=== PATIENT | female | born 1930 | race Caucasian/White ===

== ENCOUNTER 2017-03-20 13:47 | Emergency (ER) | payer MEDICARE, BC ==
[~2017-03-20] VITALS: Ht 147.3 cm; Wt 58.0 kg
[~2017-03-20 13:47] MED LIST: AMLO5TAB96 PO; BYST5TAB2 PO; COZA100T PO; GLIP10TA6 OR; GLUCTAB OR; METO5TAB PO; SITA25 PO; SUCR1TAB6 PO
[2017-03-20 14:05] VITALS: BP 109/54; PULSE 66; RESP 16; TEMP 98.6; O2SAT 98
[2017-03-20] MEDS ORDERED: AMLO2.5T PO (15:14)
[2017-03-20] MEDS ORDERED: LOSA100T PO (15:14)
[2017-03-20] MEDS ORDERED: TOLT1TAB16 PO (15:14)
[2017-03-20] MEDS ORDERED: METO5TAB PO (15:14)
[2017-03-20] MEDS ORDERED: HYDR-3799 PO (15:14)
[2017-03-20] MEDS ORDERED: BYST10TA2 PO (15:14)
[2017-03-20] MEDS ORDERED: LANS30CA PO (15:14)
[2017-03-20] MEDS ORDERED: SITA1TAB2 PO (15:14)
[2017-03-20] MEDS ORDERED: GLIP10TA6 PO (15:14)
[2017-03-20] MEDS ORDERED: TORS20TA PO (15:14)
[2017-03-20] MEDS ORDERED: CLON0.1T PO (15:14)
--- NOTE | 2017-03-20 15:15 | PD ---
HPI Chief Complaint: Complaint Time Seen by Provider: 14:59 Travel History International Travel<30 days: No Contact w/Intl Traveler<30days: No Traveled to known affect area: No History of Present Illness HPI over last 2 days c/o urinary urgency, frequency but little actual urination....patient is c/o suprapubic area pain....09/27, spasm/sharp like in presentation...PATIENT HAS BEEN TOLD THAT SHE HAS STAGE [address] KIDNEY DISEASE AND SEES [address] VERDUGO AND HAVE BEEN IN [place] ABOUT [facility] Past Medical History Blood Disorders: No Anxiety: Yes Cardiovascular Problems: Yes (Murmur) High Cholesterol: Yes Cerebrovascular Accident: Yes (1992) Diabetes: Yes (Glipiside) Patient Takes Glucophage: No Diminished Hearing: No Gastrointestinal Disorders: Yes (BARRETTS DZ) GERD: Yes Hypertension: Yes Neurologic: No Psychiatric: Yes Respiratory: No Immunizations Current: Yes (FLU SHOT 2005.) Tetanus Vaccination: Unknown Influenza Vaccination: Yes Menopausal: Yes : 4 Para: 4 Past Surgical History Abdominal Surgery: Yes Body Medical Devices: ARCINIEGA'S DISEASE Cholecystectomy: Yes Hysterectomy: Yes Neurologic Surgery: Yes (ANEURISM TO RT SIDE OF BRAIN-1992.) Tonsillectomy: Yes Other Surgery: Yes Social History Alcohol Use: No Tobacco Use: No Substance Use: No Allergies-Medications (Allergen,Severity, Reaction): Coded Allergies: oxycodone (Unverified Allergy, Severe, SICK TO STOMACH, 03/20/17) propoxyphene (Unverified Allergy, Severe, SICK TO STOMACH, 03/20/17) acetaminophen (Unverified Allergy, Mild, SICK TO STOMACH, 03/20/17) codeine (Unverified Allergy, Mild, SICK TO STOMACH, 03/20/17) Reported Meds & Prescriptions Reported Meds & Active Scripts Active Reported Glipizide 10 Mg Tab 10 Mg PO BIDAC Take 30 minutes before a meal Januvia (Sitagliptin Phosphate) 100 Mg Tab 100 Mg PO DAILY Tolterodine (Tolterodine Tartrate) 2 Mg Tab 2 Mg PO BID Metoclopramide (Metoclopramide HCl) 5 Mg Tab 5 Mg PO DAILY PRN Lansoprazole 30 Mg Capdr 30 Mg PO DAILY Torsemide 20 Mg Tab 20 Mg PO DAILY Bystolic (Nebivolol) 10 Mg Tab 10 Mg PO HS Losartan (Losartan Potassium) 100 Mg Tab 100 Mg PO DAILY Hydralazine HCl 25 Mg Tablet 10 Mg PO HS Clonidine (Clonidine HCl) 0.1 Mg Tab 0.1 Mg PO BID Amlodipine (Amlodipine Besylate) 2.5 Mg Tab 2.5 Mg PO DAILY Review of Systems Except as stated in HPI: all other systems reviewed are Neg General / Constitutional: No: Fever Eyes: No: Visual changes HENT: No: Headaches Cardiovascular: No: Chest Pain or Discomfort Respiratory: No: Shortness of Breath Gastrointestinal: No: Abdominal Pain Genitourinary: Positive: Urgency, Dysuria, Decreased Urinary Output Musculoskeletal: No: Pain Skin: No Rash Neurologic: No: Weakness Psychiatric: No: Depression Endocrine: No: Polydipsia Hematologic/Lymphatic: No: Easy Bruising Physical Exam Narrative GENERAL: SKIN: Warm and dry. HEAD: Atraumatic. Normocephalic. EYES: Pupils equal and round. No scleral icterus. No injection or drainage. ENT: No nasal bleeding or discharge. Mucous membranes pink and moist. NECK: Trachea midline. No JVD. CARDIOVASCULAR: Regular rate and rhythm. RESPIRATORY: No accessory muscle use. Clear to auscultation. Breath sounds equal bilaterally. GASTROINTESTINAL: Abdomen soft, non-tender, nondistended. suprapubic ttpercussion MUSCULOSKELETAL: Extremities without clubbing, cyanosis, or edema. No obvious deformities. NEUROLOGICAL: Awake and alert. No obvious cranial nerve deficits. Motor grossly within normal limits. Five out of 5 muscle strength in the arms and legs. Normal speech. PSYCHIATRIC: Appropriate mood and affect; insight and judgment normal. Data Data Last Documented VS Vital Signs Date Time Temp Pulse Resp B/P (MAP) Pulse Ox O2 Delivery O2 Flow Rate FiO2 03/20/17 16:49 65 18 155/59 (91) 98 Room Air 03/20/17 14:05 98.6 Orders Orders Complete Blood Count With Diff (03/20/17 15:25) Comprehensive Metabolic Panel (03/20/17 15:25) Lipase (03/20/17 15:25) Urinalysis - C+S If Indicated (03/20/17 15:25) Cath For Specimen (03/20/17 15:25) Ct Abd/Pel W/O Iv Contrast (03/20/17 15:25) Iv Access Insert/Monitor (03/20/17 15:25) Ecg Monitoring (03/20/17 15:25) Oximetry (03/20/17 15:25) Urinary Catheter Insert/Apply (03/20/17 15:25) Urine Culture (03/20/17 15:45) Ceftriaxone Inj (Rocephin Inj) (03/20/17 16:30) Labs Laboratory Tests Test 03/20/17 15:45 03/20/17 16:14 White Blood Count 7.9 TH/MM3 Red Blood Count 3.60 MIL/MM3 Hemoglobin 10.2 GM/DL Hematocrit 31.4 % Mean Corpuscular Volume 87.3 FL Mean Corpuscular Hemoglobin 28.4 PG Mean Corpuscular Hemoglobin Concent 32.5 % Red Cell Distribution Width 12.7 % Platelet Count 217 TH/MM3 Mean Platelet Volume 7.3 FL Neutrophils (%) (Auto) 83.4 % Lymphocytes (%) (Auto) 9.6 % Monocytes (%) (Auto) 5.5 % Eosinophils (%) (Auto) 1.1 % Basophils (%) (Auto) 0.4 % Neutrophils # (Auto) 6.6 TH/MM3 Lymphocytes # (Auto) 0.8 TH/MM3 Monocytes # (Auto) 0.4 TH/MM3 Eosinophils # (Auto) 0.1 TH/MM3 Basophils # (Auto) 0.0 TH/MM3 CBC Comment AUTO DIFF Differential Comment AUTO DIFF CONFIRMED Urine Collection Type CLEAN CATCH Urine Color YELLOW Urine Turbidity CLOUDY Urine pH 5.5 Urine Specific [place] 1.017 Urine Protein 300 OR GREATER mg/dL Urine Glucose (UA) NEG mg/dL Urine Ketones TRACE mg/dL Urine Occult Blood LARGE Urine Nitrite NEG Urine Bilirubin NEG Urine Leukocyte Esterase MOD Urine RBC 10-14 /hpf Urine WBC INNUM /hpf Urine WBC Clumps MANY Urine Bacteria MANY /hpf Microscopic Urinalysis Comment CULTURE INDICATED Blood Urea Nitrogen 45 MG/DL Creatinine 2.70 MG/DL Random Glucose 139 MG/DL Total Protein 6.7 GM/DL Albumin 3.2 GM/DL Calcium Level 9.0 MG/DL Alkaline Phosphatase 82 U/L Aspartate Amino Transf (AST/SGOT) 19 U/L Alanine Aminotransferase (ALT/SGPT) 18 U/L Total Bilirubin 0.4 MG/DL Sodium Level 136 MEQ/L Potassium Level 4.5 MEQ/L Chloride Level 104 MEQ/L Carbon Dioxide Level 20.3 MEQ/L Anion Gap 12 MEQ/L Estimat Glomerular Filtration Rate 17 ML/MIN Lipase 81 U/L [facility] Medical Decision Making Medical Screen Exam Complete: Yes Emergency Medical Condition: Yes Medical Record Reviewed: Yes Differential Diagnosis uti v urinary retention v colitis v divertic Narrative Course UA C/W UTI, GIVEN ROCEPHIN IV AND WILL D/C HOME WITH PO MACROBID, ALSO CT NEG FOR COLITIS/DIVERTIC OR URINARY RETENTION Diagnosis Primary Impression: Acute UTI Additional Impression: Chronic kidney disease (CKD) stage G4/A1, severely decreased glomerular filtration rate (GFR) between 15-29 mL/min/1.73 square meter and albuminuria creatinine ratio less than 30 mg/g Patient Instructions: Chronic Kidney Disease (ED), General Instructions, Urinary Tract Infection in Women (ED) Scripts Ondansetron Odt (Zofran Odt) 4 Mg Tab 4 MG SL Q6HR Y for Nausea/Vomiting, #12 TAB 0 Refills Prov: Jaison Rebolledo MD 03/20/17 Nitrofurantoin Monohydrate Macrocrystals (Macrobid) 100 Mg Capsule 100 MG PO BID for Infection for 7 Days, #14 CAP 0 Refills Prov: Jaison Rebolledo MD 03/20/17 Disposition: 01 DISCHARGE HOME Condition: Stable Jaison Rebolledo MD Mar 20, 2017 15:15
[2017-03-20 15:50] LABS: AUTOMATED NEUTROPHIL # 6.6 TH/MM3 (1.8-7.7); BASOPHIL % 0.4 % (0.0-2.0); EOSINOPHIL # 0.1 TH/MM3 (0-0.4); EOSINOPHIL % 1.1 % (0.0-4.0); HEMATOCRIT 31.4 % (35.0-46.0); HEMOGLOBIN 10.2 GM/DL (11.6-15.3); LYMPH % 9.6 % (9.0-44.0); LYMPHOCYTE # 0.8 TH/MM3 (1.0-4.8); MEAN CELL VOLUME 87.3 FL (80.0-100.0); MEAN CORPUSCULAR HEMOGLOBIN 28.4 PG (27.0-34.0); MEAN CORPUSCULAR HGB CONC 32.5 % (32.0-36.0); MEAN PLATELET VOLUME 7.3 FL (7.0-11.0); MONO % 5.5 % (0.0-8.0); MONOCYTE # 0.4 TH/MM3 (0-0.9); NEUT % 83.4 % (16.0-70.0); PLATELET COUNT 217 TH/MM3 (150-450); RED CELL DISTRIBUTION WIDTH 12.7 % (11.6-17.2); WHITE BLOOD COUNT 7.9 TH/MM3 (4.0-11.0)
[2017-03-20 15:53] LABS: BLOOD, URINE LARGE (NEG); GLUCOSE,URINE NEG (NEG); KETONE, URINE TRACE mg/dL (NEG); NITRITE,URINE NEG (NEG); PH, URINE 5.5 (5.0-8.5); URINE LEUKOCYTE ESTERASE MOD (NEG)
[2017-03-20 15:57] LABS: BILIRUBIN, URINE NEG (NEG)
[2017-03-20 15:58] LABS: URINE COLOR YELLOW (YELLW/STRAW)
[2017-03-20 15:59] LABS: BACTERIA, URINE MANY /hpf; WBC, URINE INNUM /hpf (0-5); WHITE BLOOD CELL CLUMPS MANY
[2017-03-20 16:15] VITALS: BP 164/62; PULSE 68; RESP 17; O2SAT 98
--- NOTE | 2017-03-20 16:21 | RADRPT ---
EXAM DATE/TIME: 03/20/2017 15:57 [place] COMPARISON: No previous studies available for comparison. INDICATIONS : Difficulty urinating and lower abdominal pain. ORAL CONTRAST: No oral contrast ingested. RADIATION DOSE: 9.21 CTDIvol (mGy) MEDICAL HISTORY : Hypertension. Cerebrovascular disease. Aneurysm, intracranial.Barretts esophag us. Diabetes. renal failure. SURGICAL HISTORY : Cholecystectomy. Hysterectomy. ENCOUNTER: Initial ACUITY: 1 day PAIN SCALE: 0/10 LOCATION: lower quadrant TECHNIQUE: Volumetric scanning of the abdomen and pelvis was performed. Using automated exposure control and adjustment of the mA and/or kV according to patient size, radiation dose was kept as low as reasonably achievable to obtain optimal diagnostic quality images. DICOM format image data is av ailable electronically for review and comparison. FINDINGS: CT Abdomen: The liver, spleen, pancreas, right kidney adrenals are unremarkable. There are cysts in t he left kidney the largest measures 2.3 cm in size. There is no evidence for any appreciable patholog ical adenopathy, free fluid, or bowel obstruction. There are tiny nodules in both lung bases the lar gest one measures 4-5 mm on the right. The patient's older studies from 2010 our archive and not avai lable for comparison at this time. Chronic vascular calcifications are present involving the aorta, i liac arteries without any significant stenosis or aneurysmal dilatations for technique. CT pelvis: There is no evidence for mass, abscess formation, or any significant adenopathy within the pelvis. There are degenerative changes and possible bulging discs in the lower lumbosacral spine not adequately characterized. There is also lumbar scoliosis convexity to the right. CONCLUSION: Multiple lung nodules in the lung bases could be inflammatory, however metastatic dis ease is difficult to exclude. When and if the patient's prior CT examinations are available, direct c omparison and addendum dictation will be made. Heriberto Bettencourt MD on March 20, 2017 at 16:13 Board Certified Radiologist. This report was verified electronically.
[2017-03-20] MEDS ORDERED: cefTRIAXone INJ 1,000 MG in SODIUM CHLORIDE 0.9% INJ 100 ML IV ONE (16:30)
[2017-03-20 16:31] LABS: CHLORIDE 104 MEQ/L (98-107); SODIUM (NA) 136 MEQ/L (136-145)
[2017-03-20 16:35] LABS: ALBUMIN 3.2 GM/DL (3.4-5.0); BICARBONATE 20.3 MEQ/L (21.0-32.0); BLOOD UREA NITROGEN 45 MG/DL (7-18); GLUCOSE,RANDOM 139 MG/DL (74-106); LIPASE 81 U/L (73-393)
[2017-03-20 16:38] LABS: ALT (GPT) 18 U/L (10-53); AST (GOT) 19 U/L (15-37); GLOMERULAR FILTRATION RATE 17 ML/MIN (>89)
[2017-03-20 16:40] LABS: TOTAL BILIRUBIN ADULT 0.4 MG/DL (0.2-1.0); TOTAL PROTEIN 6.7 GM/DL (6.4-8.2)
[2017-03-20 16:41] LABS: ALKALINE PHOSPHATASE 82 U/L (45-117)
[2017-03-20 16:49] VITALS: BP 155/59; PULSE 65; RESP 18; O2SAT 98
[2017-03-20] MEDS ORDERED: ZOFR4TAB3 SL (16:55)
[2017-03-20] MEDS ORDERED: MACR100C2 PO (16:55)
== END 2017-03-20 17:43 | disposition home or self-care (01) ==
LOC: PHED 13:47
DX: N39.0 Urinary tract infection, site not specified (principal); I12.9 Hypertensive chronic kidney disease with stage 1 through stage 4 chronic kidney disease, or unspecified chronic kidney disease; N18.4 Chronic kidney disease, stage 4 (severe); E78.00 Pure hypercholesterolemia, unspecified; E11.9 Type 2 diabetes mellitus without complications; K21.9 Gastro-esophageal reflux disease without esophagitis; K22.70 Barrett's esophagus without dysplasia; Z86.73 Personal history of transient ischemic attack (TIA), and cerebral infarction without residual deficits; Z79.84 Long term (current) use of oral hypoglycemic drugs; B96.20 Unspecified Escherichia coli [E. coli] as the cause of diseases classified elsewhere
CPT/HCPCS: 74176; 80053; 81001; 83690; 85025; 87077; 87086; 87186; 96365; 99285; J0696; P9612

== ENCOUNTER 2017-11-16 12:52 | Inpatient (IN) ==
[2017-11-16] MEDS ORDERED: Heparin/NS PF Inj 1,500 ML ONE (13:12)
[2017-11-16 13:16] LABS: Baso % (Auto) 0.2 % (0.0-2.0); Eos # (Auto) 0.2 th/mm3 (0.0-0.4); Eos % (Auto) 2.4 % (0.0-4.0); Hemoglobin 11.5 gm/dL (11.6-15.3); Lymph % (Auto) 10.7 % (9.0-44.0); Mean Corpuscular HGB Conc 34.9 % (32.0-36.0); Mean Corpuscular Hemoglobin 30.4 pg (27.0-34.0); Mean Platelet Volume 6.8 fL (7.0-11.0); Mono # (Auto) 0.7 th/mm3 (0.0-0.9); Mono % (Auto) 6.7 % (0.0-8.0); Neut # (Auto) 7.8 th/mm3 (1.8-7.7); Platelet Count 233 th/mm3 (150-450); Red Cell Distribution Width 12.7 % (11.6-17.2); White Blood Count 9.7 th/mm3 (4.0-11.0)
--- NOTE | 2017-11-16 13:16 | ED ---
HPI General Chief complaint: Chest Pain Stated complaint: chest pain dizzy x1wk Source: patient, family, RN notes reviewed and old records reviewed Mode of arrival: ambulatory History of Present Illness HPI narrative: 87yF presenting with chest pain. The patient's daughter states that the patient has been complaining of substernal chest "pressure-like" pain which was initially intermittent but became constant earlier this morning, moderate intensity, associated with dyspnea and generalized weakness. The patient has a history of Tien's esophagus and GERD and was initially attributing her symptoms to this. She denies diaphoresis, dizziness, or cough. History of stage III or IV kidney disease not on dialysis, (+) history of HTN. No known history of CAD/ ME in the past. Related Data Allergies Allergy/AdvReac Type Severity Reaction Status Date / Time No Known Allergies Allergy Unverified 11/16/17 13:36 Review of Systems ROS: all other systems reviewed are negative PMFSH History History Provided By: Patient Medical History Medical History Clarke esophagus (Acute) CVA (cerebral vascular accident) (Acute) Chronic kidney disease (Acute) Diabetes (Acute) GERD (gastroesophageal reflux disease) (Acute) Gastroparesis (Acute) H/O: hysterectomy (Acute) Heart murmur (Acute) Hypertension (Acute) Surgical History Surgical History H/O brain surgery (Acute) History of cholecystectomy (Acute) History of tonsillectomy (Acute) Social History Social History Substance History: No History of Abuse Second Hand Smoke Exposure: No Smoking Status: Never smoker How Often Do You Have a Drink Containing Alcohol: Never Recent Travel [facility] within the Last 8 Weeks: No Recent Out of Country Travel within the Last 8 Weeks: No Exam Const General: ill appearing [facility] Head: normocephalic and atraumatic Face and sinus: normal facial exam Eyes General: appearance normal, both eyes and all related structures Pupils: PERRL Chest Chest: normal inspection of the chest Resp Effort & Inspection: normal respiratory effort Auscultation: no rhonchi and no wheezes Cardio Rate: regular rate Rhythm: regular rhythm Heart Sounds: murmur GI Inspection: non-distended Palpation: soft and nontender Skin General: no rashes or lesions noted Other: No diaphoresis Neuro General: alert, awake, oriented x3 and no focal motor deficits Extrem Other: No lower extremity edema Psych Affect: normal affect Course Consultations Consultation #1: Case discussed with Dr. Henson for STEMI alert Time: 13:05 Initial Documented Vital Signs Temperature 97.9 F 11/16/17 13:00 Pulse Rate 58 L 11/16/17 13:00 Respiratory Rate 16 11/16/17 13:00 Blood Pressure 175/68 H 11/16/17 13:00 Pulse Oximetry 99 11/16/17 13:00 Last Documented Vital Signs Temperature 97.9 F 11/16/17 13:02 Pulse Rate 45 L 11/16/17 13:15 Respiratory Rate 16 11/16/17 13:15 Blood Pressure 177/83 H 11/16/17 13:15 Pulse Oximetry 98 11/16/17 13:15 Quality Measure Queries AMI Clinical Trial Participant: No Contraindication for No Fibrinolytic Therapy: Drug treatment not indicated ( transfer for PCI) ECG initial impression date: 11/16/17 ECG initial impression time: 12:55 Medical Decision Making MDM Narrative Medical decision making narrative: Assessment: 87yF presenting with STEMI Plan: EKG and monitor CXR Labs Aspirin (patient already took 81 mg prior to arrival) Case discussed with Dr. Henson (cardiology), patient requires stat transfer to [facility] for PCI I spoke with the patient's daughter at length regarding this plan, and explained that she will need contrast during PCI, which may further damage her kidneys and may cause her to need hemodialysis. Her daughter understands and agrees with this plan, and would like to proceed with PCI. Medical Screen Exam Complete: Yes Emergency Medical Condition: Yes Differential Diagnosis Differential Diagnosis: Differential diagnosis includes, but is not limited to: ACS, pericarditis, myocarditis Lab Data Result diagrams: 11/16/17 13:05 11/16/17 13:05 Lab Results 11/16/17 11/16/17 Range/Units 13:05 13:05 CBC w Diff Auto diff final WBC 9.7 (4.0-11.0) th/mm3 RBC 3.80 L (4.00-5.30) mil/mm3 Hgb 11.5 L (11.6-15.3) gm/dL Hct 33.0 L (35.0-46.0) % MCV 87.0 (80.0-100.0) fL MCH 30.4 (27.0-34.0) pg MCHC 34.9 (32.0-36.0) % RDW 12.7 (11.6-17.2) % Plt Count 233 (150-450) th/mm3 MPV 6.8 L (7.0-11.0) fL Neut % (Auto) 80.0 H (16.0-70.0) % Lymph % (Auto) 10.7 (9.0-44.0) % [place] % (Auto) 6.7 (0.0-8.0) % Eos % (Auto) 2.4 (0.0-4.0) % Baso % (Auto) 0.2 (0.0-2.0) % Neut # (Auto) 7.8 H (1.8-7.7) th/mm3 Lymph # (Auto) 1.0 (1.0-4.8) th/mm3 [place] # (Auto) 0.7 (0.0-0.9) th/mm3 Eos # (Auto) 0.2 (0.0-0.4) th/mm3 Baso # (Auto) 0.0 (0.0-0.2) th/mm3 WBC Differential . Differential Comment . Sodium 133 L (136-145) meq/L Potassium 4.9 (3.5-5.1) meq/L Chloride 99 (98-107) meq/L Carbon Dioxide 23.7 (21.0-32.0) meq/L Anion Gap 10 (5-15) meq/L BUN 31 H (7-18) mg/dL Creatinine 2.40 H (0.50-1.00) mg/dL Estimated GFR 19 L (>89) mL/min Random Glucose 156 H (74-106) mg/dL Calcium 9.3 (8.5-10.1) mg/dL Magnesium 2.2 (1.5-2.5) mg/dL Total Bilirubin 0.4 (0.2-1.0) mg/dL AST 15 (15-37) U/L ALT 19 (10-53) U/L Total Protein 6.9 (6.4-8.2) g/dL Albumin 3.5 (3.4-5.0) g/dL Imaging Data Radiologist's impression: Chest X-Ray 11/16/17 13:02 CONCLUSION: Stable chest. No acute disease ECG Data Attestation: I personally reviewed and interpreted this ECG as follows: Interpretation: Rate: 60 BPM Rhythm: Sinus [place]: Normal Intervals: QTc 410 ms Q waves: III, V2 T waves: Inversions in I, aVL, V2 ST segments: 2 mm elevations in III, aVF, aVR and depressions in I, aVL Impression: STEMI, ST/ T wave changes are new when compared to EKG from 2011 Discharge Plan Discharge Disposition Patient Disposition: 02 Transfer To [facility] Discharge Condition Condition: Stable Discharge Details Diagnosis: ST elevation myocardial infarction (STEMI) Physicians Team ED Provider: Nathaly Soares Primary Care Provider: UNKNOWN, Discharge Instructions Patient Printed Instructions: Chest Pain (ED) Status ED Status: With Doctor
--- NOTE | 2017-11-16 13:23 | XR ---
EXAM DATE: 11/16/2017 1:16 PM EDT AGE/SEX: 87 years / Female INDICATIONS: STEMI ALERT. CLINICAL DATA: This is the patient's initial encounter. Patient reports that signs and symptoms have been present for 1 day and indicates a pain score of 6/10. MEDICAL/SURGICAL HISTORY: . Hypertension. Cerebrovascular disease. Aneurysm, intracranial.[place] tts esophagus. Diabetes. renal failure. Cholecystectomy. Hysterectomy. COMPARISON: POI, XR CHEST PA AND LAT, 12/10/2016. . FINDINGS: Lungs are grossly clear. No significant effusion suspected. Cardiac contours are stable with mild car diac enlargement. Pulmonary vascularity is within normal limits. CONCLUSION: Stable chest. No acute disease Electronically signed by: Pete Albert MD 11/16/2017 1:21 PM EDT
[2017-11-16 13:24] LABS: Chloride 99 meq/L (98-107); Potassium 4.9 meq/L (3.5-5.1); Sodium 133 meq/L (136-145)
[2017-11-16 13:27] LABS: Calcium 9.3 mg/dL (8.5-10.1)
[2017-11-16 13:28] LABS: Albumin 3.5 g/dL (3.4-5.0); Anion Gap 10 meq/L (5-15); Blood Urea Nitrogen 31 mg/dL (7-18); Carbon Dioxide 23.7 meq/L (21.0-32.0); Glucose,Random 156 mg/dL (74-106); Magnesium 2.2 mg/dL (1.5-2.5)
[2017-11-16 13:31] LABS: Alanine Aminotransferase 19 U/L (10-53); Aspartate Aminotransferase 15 U/L (15-37); Glomerular Filtration Rate 19 mL/min (>89)
[2017-11-16 13:33] LABS: Total Protein 6.9 g/dL (6.4-8.2)
[2017-11-16 13:34] LABS: Alkaline Phosphatase 69 U/L (45-117)
[2017-11-16 13:41] LABS: Creatine Kinase 42 U/L (26-192)
[2017-11-16] MEDS ORDERED: Heparin/NS PF Inj 500 ML ONE (13:45)
[2017-11-16] MEDS ORDERED: Nitroglycerin Drip Premix 50 MG/250 ML BOTTLE ONE (14:00)
[2017-11-16] MEDS ORDERED: Nitroglycerin SL 400 MCG/ACT 4.9 GM Spray Bottle SL ONE (14:11)
[2017-11-16] MEDS ORDERED: Acetaminophen 325 MG Tablet PO PRN (14:49)
[2017-11-16] MEDS ORDERED: Misc Info for Pharmacy OTHER STA (14:49)
--- NOTE | 2017-11-16 14:59 | CATHPROC ---
[facility] HIS Report Study Information Study Number Admission Scheduled Start Study Start [id number] Nov 16 2017 12:52PM 11/16/2017 Nov 16 2017 1:38PM [place] Service Cardiac Catheterization Admit Source Facility Department Transfer in from another acute care facility [facility] - Color Control Supervisor Physician and Clinical Staff Initial MD Henson, Jean Nonprofit Director Jovan RN, Lenka Herrera,RT(R) (BS) Scrub Emilie Apodaca ,RT(R) Procedures Performed Procedure Location (Site) Vessel Name Coronary Angiograms LCA Left Coronary Coronary Angiograms RCA Right Coronary Drug Eluting Inflatio RCA Prox Right Coronary IVUS Fem Art (right) Femoral Art L Heart Cath PTCA RCA Prox Right Coronary Wire insertion Fem Art (right) Femoral Art Equipment Time Belt Maker Helper Description Size Mfg Part Number Used/Scraped [id number] 14:12 [employer]ENZU[employer] WIRE, ASAHI PROWATER 180CM 180CM Used *[id number] TRANSDUCER, TRUWAVE [id number] 13:49 MORTENSEN FRIEDMAN * Used W/STOCKCOCK *[id number] [id number] *[id number] [id number] *[id number] *[id number] *[id number] PIGTAIL ANG. 145 INFINITI [id number] CATHETER *[id number] 14:31 DAIG/ST. SARAH MEDICAL ANGIOSEAL, FR6 VIP FR 6 Used *[id number] 13:49 TeamDynamix BLANKET,WARM AIR CCL * Used *[id number] 13:49 TeamDynamix PACK, CCL CUSTOM * Used *[id number] 13:49 Nimbus Data PACER PEN, SKIN DUAL W/ RULER * Used *[id number] BALLOON, 3.5 X 8MM NC [id number] 14:26 MEDTRONIC 8MM Used EUPHORA *[id number] 14:21 MEDTRONIC STENT, 3.5 12MM SHARYN 3.5 12MM Used *[id number] 14:23 Sidense MEDICAL 30 DIOGENES INDEFLATOR Used *[id number] 13:49 Sidense MEDICAL SHEATH, FR6.5 PRELUDE 11CM FR 6.5 [id number] Used *[id number] 13:49 Roundarch WIRE, 3MMJ .035 180CM 180CM Used *[id number] 13:49 NAMIC MANIFOLD, 4 PORT * Used *[id number] 13:49 NYCOMED OMNIPAQUE, 350 MG, 150ML 150ML [id number] Used CATHETER, [employer] [place] [place] [id number] 14:12 VOLCANO Used IMAGING *[id number] Equipment Model, Serial, Lot Number and Expiration Data Description Model Number Serial Number Lot Number Expiration Date BALLOON, 3.5 X 8MM NC EUPHORA [id number] 05-11-2019 CATHETER, [employer] [place] [id number] 07-19-2019 IMAGING STENT, 3.5 12MM SHARYN [id number] 01-21-2019 History: Current Medications Medication Dosage/Unit Route Frequency Last Date/Time Taken COZAAR Beta Triston NORVASC CLONIDINE HYDRALAZINE History: Allergies Allergy Reaction codeine SICK TO STOMACH oxycodone SICK TO STOMACH propoxyphene SICK TO STOMACH acetaminophen SICK TO STOMACH No Known Allergies History: Risk Factors Family History of Hypertension Dyslipidemia Previous [place] Previous Heart Failure Premature CAD Yes No No No No Prior Valve Prior PCI Prior CABG Surgery No No No Cerebrovascular Peripheral Artery Chronic Lung On Dialysis Diabetes Diabetes Therapy Disease Disease Disease No Yes No No Yes Oral History: Symptoms/Diagnosis Selection Items Chest pain History: Stress Tests Stress or Imaging Studies Performed No History: Other Current Smoker No Labs Hgb (g/dl) Hct (%) WBC (l/cumm) Platelets (thousands) 11.60-17.00 35.00-51.00 4.00-11.00 150.00-450.00 11.5 33 9.7 233 Creatinine (mg/dl) 0.50-1.30 2.4 Troponin I (ng/ml) CPK-MB (ng/ML) 0.02-0.05 0.50-3.60 0.02 Not Drawn Medication Medication Total Dose (Bolus/Oral) Medication Total Dosage/Unit 1% XYLOCAINE 20 mL ANGIOMAX BOLUS 8.3 mL BRILINTA 180 mg NITROGLYCERIN S/L 0.4 mg VERSED 1 mg Medications (Bolus/Oral) Medication Time Given Dosage/Unit Administered By Reason VERSED 11/16/2017 1:48:49 PM 1 mg Jose Aldana RN 1 mg VERSED given in lab by Jose Aldana RN via Peripheral IV. 1% XYLOCAINE 11/16/2017 1:53:41 PM 20 mL Jean Henson 20 mL 1% XYLOCAINE given in lab by Jean Henson in Right Groin via Subcutaneous. ANGIOMAX BOLUS 11/16/2017 2:08:42 PM 8.3 mL Jose Aldana RN 8.3 mL ANGIOMAX BOLUS given in lab by Jose Aldana RN in Right Antecubital via Peripheral IV. NITROGLYCERIN S/L 11/16/2017 2:11:31 PM 0.4 mg Jose Aldana RN 0.4 mg NITROGLYCERIN S/L given in lab by Jose Aldana RN via Sublingual. BRILINTA 11/16/2017 2:36:27 PM 180 mg Jose Aldana RN 180 mg BRILINTA given by Jose Aldana RN via Oral. Medication (Drip) Medication Time Given Dosage/Unit Concentration/Unit Diluent (ml) Solutio n ANGIOMAX DRIP 11/16/2017 2:10:57 PM 1 mg/kg/hr 250 mg 50 NaCl .9 1 mg/kg/hr ANGIOMAX DRIP given in lab by Jose Aldana RN in Right Antecubital via Peripheral IV. Pump /Drip Flow = 11 ml/hr using NaCl .9 with a concentration of 250 mg in 50 ml. IV Solutions 11/16/2017 1:41:01 PM 0 mL (IV) 500 NaCl .9 IV Solutions given in lab by Jose Aldana RN in Right Antecubital via Peripheral IV. Pump/Drip Flow = 30 ml/hr using NaCl .9. NITROGLYCERIN DRIP 11/16/2017 2:02:56 PM 10 mcg/min 50 mg 250 D5W 10 mcg/min NITROGLYCERIN DRIP given in lab by Jean Henson in Right Antecubital via Peripheral IV. P ump/Drip Flow = 3 ml/hr using D5W with a concentration of 50 mg in 250 ml. NITROGLYCERIN DRIP 11/16/2017 2:29:40 PM 20 mcg/min 50 mg 250 D5W 20 mcg/min NITROGLYCERIN DRIP given in lab by Jean Henson in Right Antecubital via Peripheral IV. P ump/Drip Flow = 6 ml/hr using D5W with a concentration of 50 mg in 250 ml. Initial Case Assessment Cardiovascular HR Rhythm NIBP 56 reg 225/80 Edema Present Skin color Skin None Normal Warm Dry Circulatory - Right Pulses Dorsalis Pedis Femoral 1 1 Scale (0,1,2,3,4,d) Circulatory - Left Pulses Dorsalis Pedis Femoral 1 1 Scale (0,1,2,3,4,d) Circulatory - Lower Extremities Color Lower Right Color Lower Left Normal Normal Neurological State Oriented to time-place- Alert Moves all extremities person Respiration - General Respiration Rate SpO2 (%) (B/min) 15 98 Chronological Log Time Study Chronological Log 13:40:37 Patient arrived via Bed. 13:40:37 Patient Name, D.O.B, / Armband Verified By R.N. 13:40:43 Consent signed by the physician and the patient and verified by the Color Control Supervisor staff. 13:40:44 Pre-op and post- op instructions given; patient acknowledges understanding of instructions. 13:40:46 Presedation assessment performed by Color Control Supervisor RN. 13:40:55 Patient Warmer Placed on the Table. 13:40:58 Disposable Defibrillator Pads Placed On Patient. 13:41:00 A # 20 IV was noted in the Antecubital (right). Grade = ~GRADE~ 13:41:01 A # 20 IV was noted in the Antecubital (left). Grade = 0 IV Solutions given in lab by Jovan ZURITA, Jose in Right Antecubital via Peripheral IV. Pump/Drip Flow = 30 ml/hr using 13:41:01 NaCl .9. 13:41:04 History and physical on the chart or being dictated. Assessment: Initial Case, HR=56 BPM, Rhythm=reg, MJZH=667/80 mmhg, Edema=None, Color=Normal, Sk in = Warm, Dry Right Pulses: Chris Ped=1, Femoral=1 Left Pulses: Chris Ped=1, Femoral=1 13:41:05 Lower Right Extremities: Color=Normal Lower Left Extremities: Color=Normal Neurological: State=Alert, Ox3, PINA Respiration: Resp=15 B/min, SpO2=98 % 13:42:09 Immediate Presedation assesment performed by physician. Vitals capture started with the following parameters, Patient=Adult, Interval=5 min, Initial Pr lgdtgn=246 mmHg, 13:44:11 Deflation Rate=5 mmHg, Cuff placed on Left Arm 13:45:04 Bilateral groins prepped with 2% chlorhexidine, and draped after a 3 minute waiting time. 13:45:37 HR=64 bpm, NLHP=144/80 mmhg, SpO2=99.0 %, Resp=16 B/min, Pain=5, Carlito=10, Joy=2 13:48:49 1 mg VERSED given in lab by Jose Aldana RN via Peripheral IV. 13:50:11 HR=48 bpm, TLMF=426/74 mmhg, NgK8=872.0 %, Resp=22 B/min, Pain=5, Carlito=10, Joy=2 13:50:12 Pressure channel 1 zeroed. Time Out. Correct patient, correct procedure, correct physician, labs, allergies, and equipment verified with lab support service tech 13:50:27 team present. Fire risk assesment completed (see hard stop sheet for coding). Time Out Conc urred by and individual staff in procedure. 13:50:50 Case Start 13:53:41 20 mL 1% XYLOCAINE given in lab by Jean Henson in Right Groin via Subcutaneous. 13:55:02 HR=59 bpm, PMIN=228/88 mmhg, SpO2=99.0 %, Resp=25 B/min, Pain=5, Carlito=10, Joy=2 13:57:22 Access site was Right Femoral Artery. 13:57:28 A SHEATH, FR6.5 PRELUDE 11CM FR 6.5 was advanced into the Fem Art (right) using the Percuta neous technique. A PIGTAIL ANG. 145 INFINITI CATHETER FR 6 was advanced over a wire. OMNIPAQUE, 350 MG, 150ML 15 0ML was 13:58:33 used for injections. Recorded Pressure: LV, HR=56, Condition=Condition 1 13:59:17 (Left Ventricle) LV 225/1/12 Recorded Pressure: LV, Ao, HR=57, Condition=Condition 1 13:59:29 (Left Ventricle) LV 224/3/12, (Aorta) Ao 216/61/117 14:00:07 HR=56 bpm, XZJI=524/75 mmhg, SpO2=98.0 %, Resp=17 B/min, Pain=5, Carlito=10, Joy=2 14:00:11 Catheter was removed A 3DRC INFINITI CATHETER FR 5 was advanced over a wire. OMNIPAQUE, 350 MG, 150ML 150ML was used for 14:00:13 injections. 14:00:46 Reference ECG taken Recorded Pressure: Ao, HR=58, Condition=Condition 1 14:01:32 (Aorta) Ao 191/59/107 14:01:58 The RCA was injected and visualized at various angles. OMNIPAQUE, 350 MG, 150ML 150ML used . A JL 4.0 INFINITI CATHETER FR 6 was advanced over a wire. OMNIPAQUE, 350 MG, 150ML 150ML was us ed for 14:02:39 injections. 10 mcg/min NITROGLYCERIN DRIP given in lab by Jean Henson in Right Antecubital via Peripheral IV. Pump/Drip Flow 14:02:56 = 3 ml/hr using D5W with a concentration of 50 mg in 250 ml. 14:05:02 HR=55 bpm, BVBX=224/65 mmhg, SpO2=97.0 %, Resp=12 B/min, Pain=5, Carlito=10, Joy=2 14:05:10 The LCA was injected and visualized at various angles. OMNIPAQUE, 350 MG, 150ML 150ML used . 14:05:17 Catheter was removed A JR 4.0 GUIDE CATHETER FR 6 was advanced over a wire. OMNIPAQUE, 350 MG, 150ML 150ML was used for 14:07:55 injections. 14:08:42 8.3 mL ANGIOMAX BOLUS given in lab by Jose Aldana RN in Right Antecubital via Peripheral I V. 14:09:59 HR=56 bpm, CBUP=784/71 mmhg, SpO2=98.0 %, Resp=18 B/min, Pain=5, Carlito=10, Joy=2 1 mg/kg/hr ANGIOMAX DRIP given in lab by Jose Aldana RN in Right Antecubital via Peripheral IV . Pump/Drip Flow = 11 14:10:57 ml/hr using NaCl .9 with a concentration of 250 mg in 50 ml. A JR 4.0 GUIDE CATHETER FR 5 was advanced over a wire. OMNIPAQUE, 350 MG, 150ML 150ML was used for 14:11:02 injections. 14:11:31 0.4 mg NITROGLYCERIN S/L given in lab by Jose Aldana RN via Sublingual. 14:13:26 A WIRE, Altimet PROWATER 180CM 180CM was inserted via Fem Art (right). 14:14:58 HR=53 bpm, HUBB=586/72 mmhg, SpO2=98.0 %, Resp=25 B/min, Pain=5, Carlito=10, Joy=2 14:16:56 An CATHETER, [employer] [place] IMAGING was advanced through the lesion. Images saved on to IVUS hard drive 14:18:28 IVUS in progress using CATHETER, [employer] [place] IMAGING Mean Luminal Area measured 3.25 14:19:59 HR=55 bpm, WAMW=782/73 mmhg, SpO2=98.0 %, Resp=15 B/min, Pain=5, Carlito=10, Joy=2 14:20:10 IVUS catheter removed A STENT, 3.5 12MM SHARYN 3.5 12MM was advanced through a JR 4.0 GUIDE CATHETER FR 5 over a WIRE, ASAHI 14:21:35 PROWATER 180CM 180CM. A STENT, 3.5 12MM SHARYN 3.5 12MM was deployed using a 30 DIOGENES INDEFLATOR at 12 atmospheres for 33 seconds in 14:22:54 the RCA Prox. 14:23:42 Delivery device removed 14:25:00 HR=56 bpm, SCWN=043/74 mmhg, SpO2=98.0 %, Resp=18 B/min, Pain=5, Carlito=10, Joy=2 A BALLOON, 3.5 X 8MM NC EUPHORA 8MM was inserted over WIRE, ASAHI PROWATER 180CM 180CM via the Fem Art 14:26:04 (right). A BALLOON, 3.5 X 8MM NC EUPHORA 8MM over a WIRE, ASAHI PROWATER 180CM 180CM in the RCA Prox was 14:27:38 inflated using a 30 DIOGENES INDEFLATOR at 20 diogenes for 20 sec. 14:28:28 Balloon Removed 20 mcg/min NITROGLYCERIN DRIP given in lab by Jean Henson in Right Antecubital via Peripheral IV. Pump/Drip Flow 14:29:40 = 6 ml/hr using D5W with a concentration of 50 mg in 250 ml. 14:30:16 Catheter was removed 14:30:19 Wire removed 14:30:38 HR=54 bpm, KQIP=248/74 mmhg, SpO2=98.0 %, Resp=20 B/min, Pain=5, Carlito=10, Joy=2 14:30:46 An injection in the Fem Art (right) was made through the SHEATH, FR6.5 PRELUDE 11CM FR 6.5. 14:31:10 ANGIOSEAL, FR6 VIP FR 6 placement in the Fem Art (right) 14:33:17 Case End (Physician broke scrub) 14:33:39 Catheter(s) removed without difficulty 14:35:02 HR=58 bpm, BZEX=403/79 mmhg, SpO2=99.0 %, Resp=14 B/min, Pain=5, Carlito=10, Joy=2 14:35:02 Sterile dressing applied to site 14:35:05 No case complications noted. 14:35:09 Bedside Report will be given. 14:35:09 Implantable Device card placed in patient's chart. 14:35:14 A Left Heart Cath was performed. 14:36:27 180 mg BRILINTA given by Jose Aldana RN via Oral. 14:40:47 HR=55 bpm, HGEZ=943/84 mmhg, SpO2=99.0 %, Resp=20 B/min, Pain=5, Carlito=10, Joy=2 14:45:07 HR=55 bpm, LYJX=824/89 mmhg, SpO2=99.0 %, Resp=18 B/min, Pain=5, Carlito=10, Joy=2 14:49:35 Vitals capture stopped. 14:51:13 Patient moved to [facility] [place] End Study - Contrast Media Used In Study Contrast Total Opened (mL) Total Used (mL) Total Wasted (mL) Omnipaque 50 50 0 End Study - Maximum Contrast Load Max Contrast Load (mL) 114.6 End Study - Radiation Exposure Fluoro Time (minutes) 8.7 End Study - Sheaths Sheaths Pulled By Sheath Hold Time (min) Jean Henson End Study - Patient Disposition Complications Transferred To Interventional Outcome No Telemetry Bed successful
[2017-11-16] MEDS: Nitroglycerin Drip Premix 50 MG/250 ML BOTTLE IV.CONT PRN ×2 (15:00→15:25)
--- NOTE | 2017-11-16 15:17 | MH ---
cc: Jean Henson MD DATE OF ADMISSION: 11/16/2017 ADMISSION DIAGNOSES: 1. Acute inferior ST-elevation myocardial infarction. 2. Severe hypertension. 3. Chronic stage IV kidney disease. CHIEF COMPLAINT: Chest pain. HISTORY OF PRESENT ILLNESS: This is an 87-year-old woman who has been having intermittent chest pain for a couple of weeks, but suddenly it has become constant today. It is a pressure-like discomfort in the center of the left upper chest, making her very uncomfortable. She was seen in [place] ER and had ST elevation in lead III and aVF and sent up here as a STEMI alert. She is having ongoing pain at the start of the catheterization. PAST MEDICAL HISTORY: Includes severe hypertension, on multiple medications, chronic stage IV kidney disease, previous CVA, Clarke esophagus, diabetes, gastroesophageal reflux disease, gastroparesis, previous hysterectomy, history of murmur. PAST SURGICAL HISTORY: Includes brain surgery, cholecystectomy, tonsillectomy. SOCIAL HISTORY: No history of any substance abuse. Nonsmoker, nondrinker. REVIEW OF SYSTEMS: Denies any bleeding. PHYSICAL EXAMINATION: GENERAL: Alert, elderly female. She is showing some mild signs of dementia, repeating herself, but knew she was in the hospital and was able to provide history of her chest pain. HEENT: Unremarkable. NECK: Negative for JVD or bruits. CHEST: Clear anteriorly. CARDIAC: S1, S2. Regular rate and rhythm, 1/6 systolic murmur. ABDOMEN: Soft, nontender. EXTREMITIES: No clubbing, cyanosis, or edema. Pulses intact. EKG shows sinus rhythm. There is barely 1 mm depression in III and aVF, which is consistent with the diagnosis of STEMI. LABORATORY DATA: Her hematocrit is 33.0, creatinine is 2.4 with a BUN of 31. Her initial troponin is negative. Chest x-ray shows no acute disease. At the time of this dictation, her catheterization has been completed and a drug-eluting stent has been placed on her proximal right coronary artery with 50 mL or less of contrast administration. PLAN: Continue aspirin and Brilinta. We will consult Dr. Contreras to follow her from nephrology. She will need at least 2 days in the hospital. Further therapy to be determined. Jean Henson MD VEElizabeth/ts , 02:49 PM , 02:57 PM
[2017-11-16] MEDS: Sod Chloride 0.9% Inj 1,000 ML IV.CONT SCH (16:11)
--- NOTE | 2017-11-16 17:00 | P.CON ---
History of Present Illness Reason for Consult: Medical management Primary Care Provider: UNKNOWN Family Provider: Lorne Shi DO Chief Complaint: Chest pain History of Present Illness: 87-year-old female for past medical history of diabetes type 2, hypertension, chronic kidney disease stage IV presented to the ED today for evaluation of ongoing substernal chest pain times several weeks duration however worse today on presentations shortness of breath and elevated BP. A STEMI was called and patient was taken to cardiac catheterization lab for PCI with stent placement. Patient was seen in her room, she is currently on nitroglycerin for elevated BP. During my exam, she denies any chest pain or shortness of breath. Review of Systems All other systems reviewed negative except as stated in HPI [facility] - History History Provided By: Patient - Medical History Medical History: Medical History (Last Updated 11/16/17 @ 13:20 by Farhana Healy RN) Diabetes GERD (gastroesophageal reflux disease) Gastroparesis Clarke esophagus CVA (cerebral vascular accident) Chronic kidney disease H/O: hysterectomy Heart murmur Hypertension - Surgical History Surgical History: Surgical History (Last Updated 11/16/17 @ 13:20 by Farhana Healy RN) H/O brain surgery History of cholecystectomy History of tonsillectomy - Family History Family History: Family History (Last Updated 11/16/17 @ 16:54 by Arthur Jaime MD) Other Heart disease - Tobacco History Second Hand Smoke Exposure: No Smoking Status: Never smoker - Alcohol History How Often Do You Have a Drink Containing Alcohol: Never - Substance Use History Substance History: No History of Abuse - Travel History Recent Travel in the [place] Within the Last 8 Weeks: No Recent Travel Out of the Country Within the Last 8 Weeks: No - Immunization History Tetanus Immunization: <5 Years Hx Influenza Vaccine This Season: Yes Medications and Allergies Active Medications: Active Medications Acetaminophen (Tylenol) 325 mg PO Q4H PRN PRN Reason: PAIN SCALE 1 TO 2 Amlodipine Besylate (Norvasc) 5 mg PO DAILY [facility] Aspirin (Aspirin Chew) 81 mg PO DAILY [facility] Atorvastatin Calcium (Lipitor) 40 mg PO DAILY [facility] Clonidine HCl (Catapres) 0.1 mg PO Q8HR JEREL Last Admin: 11/16/17 16:00 Dose: 0.1 mg Hydralazine HCl (Apresoline) 100 mg PO TID [facility] Nitroglycerin/Dextrose (Nitroglycerin Drip Premix) 50 mg in 250 mls @ 1.5 mls/ hr IV.CONT TITRATE PRN; Protocol PRN Reason: Per Protocol Sodium Chloride (Ns Inj) 1,000 mls @ 100 mls/hr IV.CONT .Q10H JEREL Stop: 11/17/17 02:59 Last Admin: 11/16/17 16:11 Dose: Not Given Nebivolol (Bystolic) 20 mg PO DAILY [facility] Sodium Chloride (Ns Flush) 2 ml IV.FLUSH BID JEREL Sodium Chloride (Ns Flush) 2 ml IV.FLUSH PRN PRN PRN Reason: FLUSH AFTER USING IV ACCESS Ticagrelor (Brilinta) 90 mg PO BID [facility] Allergies Allergy/AdvReac Type Severity Reaction Status Date / Time No Known Allergies Allergy Unverified 11/16/17 13:36 Home Medications Medication Instructions Recorded Confirmed Type aspirin 81 mg PO DAILY 11/16/17 11/16/17 History clonidine HCl 0.1 mg PO TID 11/16/17 11/16/17 History glipizide 20 mg PO BID 11/16/17 11/16/17 History hydralazine 10 mg PO BID 11/16/17 11/16/17 History lansoprazole 30 mg PO DAILY 11/16/17 11/16/17 History lorazepam 0.5 mg PO TID 11/16/17 11/16/17 History losartan 100 mg PO DAILY 11/16/17 11/16/17 History metoclopramide HCl [Reglan] 5 mg PO TID 11/16/17 11/16/17 History nebivolol [Bystolic] 20 mg PO DAILY 11/16/17 11/16/17 History pioglitazone 30 mg PO DAILY 11/16/17 11/16/17 History sitagliptin [Januvia] 50 mg PO DAILY 11/16/17 11/16/17 History sodium bicarbonate 650 mg PO BID 11/16/17 11/16/17 History torsemide 10 mg PO DAILY 11/16/17 11/16/17 History tramadol 50 mg PO DAILY 11/16/17 11/16/17 History zolpidem 5 mg PO DAILY 11/16/17 11/16/17 History Physical Exam Vital signs: Vital Signs 11/16/17 13:00 11/16/17 13:02 11/16/17 13:15 Temperature 97.9 F 97.9 F Pulse Rate 58 L 58 L 45 L Respiratory Rate 16 16 16 Blood Pressure 175/68 H 175/68 H 177/83 H Pulse Oximetry 99 99 98 Intake & Output 11/15/17 11/16/17 11/16/17 18:59 06:59 18:59 Weight 55 kg Narrative: GENERAL: NAD SKIN: Warm and dry. HEAD: Atraumatic. Normocephalic. EYES: Pupils equal and round. No scleral icterus. No injection or drainage. ENT: No nasal bleeding or discharge. Mucous membranes pink and moist. NECK: Trachea midline. No JVD. CARDIOVASCULAR: Regular rate and rhythm. III/ JORDYN RESPIRATORY: No accessory muscle use. Clear to auscultation. Breath sounds equal bilaterally. GASTROINTESTINAL: Abdomen soft, non-tender, nondistended. Hepatic and splenic margins not palpable. MUSCULOSKELETAL: Extremities without clubbing, cyanosis, or edema. No obvious deformities. NEUROLOGICAL: Awake and alert. No obvious cranial nerve deficits. Motor grossly within normal limits. Five out of 5 muscle strength in the arms and legs. Normal speech. PSYCHIATRIC: Appropriate mood and affect; insight and judgment normal. Assessment and Plan - Plan 87-year-old female with ST elevation HI Status post PCI with stent placement Currently on Nitro drip, Brilinta, ASA, Lipitor, BB Management per Cardiology 2D echo, lipid profile pending Continue with Telemetry monitoring Hypertensive urgency Continue with Nitro drip, BB, Hydralazine, Clonidine 2D echo pending Diabetes type II Hold Oral hyperglycemic agents Start ISS with FSBG monitoring CKD stage IV Monitor Bun/Cr; Avoid all nephrotoxic drugs Other chronic medical conditions Continue with outpatient medications
[2017-11-16] MEDS ORDERED: Dextrose 50% in Water 50 ML Vial IV.PUSH PRN (17:01)
--- NOTE | 2017-11-16 17:20 | P.CONNP ---
History of Present Illness Consult date: 11/16/17 Reason for Consult: Acute on chronic renal insufficiency. Primary Care Provider: UNKNOWN Family Provider: Lorne Shi DO Chief Complaint: Chest pain History of Present Illness: This patient is an 87-year-old female with a history of severe hypertension, chronic kidney disease borderline CKD 3 and CKD 4 with a creatinine level of 1.68 and estimated GFR 29 during her office visit back in June,. Patient has had some difficulty in blood pressure management related to intolerance to different classes of hypertensive medications. There is also question of renovascular disease. Patient was reluctant previously to undergo renal artery angiogram and records will be reviewed from the office in that regard. I do believe she did have a consultation with the radiologist and it was mutually agreed with the patient not to proceed with the angiogram. Patient also has a history of some anxiety, CVA previously as well as diabetes mellitus. Patient presented on this occasion with complaints of chest pain and accelerated hypertension with evidence of an acute ST [place] and she underwent cardiac catheterization emergently requiring angioplasty and stent placement in the right coronary on November 16, 2017. Patient currently resting comfortably in bed. No verbal complaints. Review of Systems All other systems reviewed negative except as stated in HPI PMFSH - History History Provided By: Patient - Medical History Medical History: Medical History (Last Updated 11/16/17 @ 13:20 by Farhana Healy RN) Diabetes GERD (gastroesophageal reflux disease) Gastroparesis Clarke esophagus CVA (cerebral vascular accident) Chronic kidney disease H/O: hysterectomy Heart murmur Hypertension - Surgical History Surgical History: Surgical History (Last Updated 11/16/17 @ 13:20 by Farhana Healy RN) H/O brain surgery History of cholecystectomy History of tonsillectomy - Family History Family History: Family History (Last Updated 11/16/17 @ 16:54 by Arthur Jaime MD) Other Heart disease - Tobacco History Second Hand Smoke Exposure: No Smoking Status: Never smoker - Alcohol History How Often Do You Have a Drink Containing Alcohol: Never - Substance Use History Substance History: No History of Abuse - Travel History Recent Travel in the [place] Within the Last 8 Weeks: No Recent Travel Out of the Country Within the Last 8 Weeks: No - Immunization History Tetanus Immunization: <5 Years Hx Influenza Vaccine This Season: Yes Medications and Allergies Active Medications: Active Medications Acetaminophen (Tylenol) 325 mg PO Q4H PRN PRN Reason: PAIN SCALE 1 TO 2 Amlodipine Besylate (Norvasc) 5 mg PO DAILY [facility] Aspirin (Aspirin Chew) 81 mg PO DAILY [facility] Atorvastatin Calcium (Lipitor) 40 mg PO DAILY [facility] Clonidine HCl (Catapres) 0.1 mg PO Q8HR [facility] Last Admin: 11/16/17 16:00 Dose: 0.1 mg Dextrose (D50w Vial) 50 ml IV.PUSH UNSCH PRN PRN Reason: PER HYPOGLYCEMIA PROTOCOL Glucagon (Glucagon Inj) 1 mg OTHER PRN PRN PRN Reason: for Hypoglycemia Protocol Hydralazine HCl (Apresoline) 100 mg PO TID [facility] Nitroglycerin/Dextrose (Nitroglycerin Drip Premix) 50 mg in 250 mls @ 1.5 mls/ hr IV.CONT TITRATE PRN; Protocol PRN Reason: Per Protocol Sodium Chloride (Ns Inj) 1,000 mls @ 100 mls/hr IV.CONT .Q10H [facility] Stop: 11/17/17 02:59 Last Admin: 11/16/17 16:11 Dose: Not Given Insulin Aspart (Novolog Insulin Correctional Sugar Inj) 0 unit SQ ACHS [facility]; Protocol Nebivolol (Bystolic) 20 mg PO HS [facility] Sodium Chloride (Ns Flush) 2 ml IV.FLUSH BID [facility] Sodium Chloride (Ns Flush) 2 ml IV.FLUSH PRN PRN PRN Reason: FLUSH AFTER USING IV ACCESS Ticagrelor (Brilinta) 90 mg PO BID [facility] Allergies Allergy/AdvReac Type Severity Reaction Status Date / Time No Known Allergies Allergy Unverified 11/16/17 13:36 Home Medications Medication Instructions Recorded Confirmed Type aspirin 81 mg PO DAILY 11/16/17 11/16/17 History clonidine HCl 0.1 mg PO TID 11/16/17 11/16/17 History glipizide 20 mg PO BID 11/16/17 11/16/17 History hydralazine 10 mg PO BID 11/16/17 11/16/17 History lansoprazole 30 mg PO DAILY 11/16/17 11/16/17 History lorazepam 0.5 mg PO TID 11/16/17 11/16/17 History losartan 100 mg PO DAILY 11/16/17 11/16/17 History metoclopramide HCl [Reglan] 5 mg PO TID 11/16/17 11/16/17 History nebivolol [Bystolic] 20 mg PO DAILY 11/16/17 11/16/17 History pioglitazone 30 mg PO DAILY 11/16/17 11/16/17 History sitagliptin [Januvia] 50 mg PO DAILY 11/16/17 11/16/17 History sodium bicarbonate 650 mg PO BID 11/16/17 11/16/17 History torsemide 10 mg PO DAILY 11/16/17 11/16/17 History tramadol 50 mg PO DAILY 11/16/17 11/16/17 History zolpidem 5 mg PO DAILY 11/16/17 11/16/17 History Exam Vital signs: Vital Signs 11/16/17 13:00 11/16/17 13:02 11/16/17 13:15 Temperature 97.9 F 97.9 F Pulse Rate 58 L 58 L 45 L Respiratory Rate 16 16 16 Blood Pressure 175/68 H 175/68 H 177/83 H Pulse Oximetry 99 99 98 Intake & Output 11/15/17 11/16/17 11/16/17 18:59 06:59 18:59 Weight 55 kg Narrative: GENERAL: Elderly female lying in bed not in respiratory distress. SKIN: Warm and dry. HEAD: Normocephalic. EYES: No scleral icterus. No injection or drainage. NECK: Supple, trachea midline. No JVD. CARDIOVASCULAR: Regular rate and rhythm without murmurs, gallops, or rubs. RESPIRATORY: Breath sounds equal bilaterally. No accessory muscle use. GASTROINTESTINAL: Abdomen soft, non-tender, nondistended. MUSCULOSKELETAL: No cyanosis, or edema. Surgical site not disturbed. .. Results - Lab Results 11/16/17 13:05 11/16/17 13:05 Most recent lab results Calcium 9.3 mg/dL (8.5-10.1) 11/16/17 13:05 Magnesium 2.2 mg/dL (1.5-2.5) 11/16/17 13:05 Assessment and Plan - Assessment (1) Acute renal insufficiency Code(s): N28.9 - Disorder of kidney and ureter, unspecified Status: Acute Plan: The patient's presenting creatinine level was above her usual baseline. Unsure of etiology. May be related to progression of her chronic intrinsic renal disease or may be related to hemodynamic factors secondary to her acute myocardial infarction. We will continue to monitor. Agree with hydration at this time but would reduce IV rate. Patient is also risk for development of contrast nephrotoxicity however contrast load was relatively low. (2) Chronic kidney disease, stage IV (severe) Code(s): N18.4 - Chronic kidney disease, stage 4 (severe) Status: Chronic Plan: Secondary to nephrosclerosis of hypertension and aging with a possible vascular component. Medications should be adjusted for the patient's estimated GFR if clinically indicated. Avoid agents with significant potential for nephrotoxicity possible including NSAIDs for analgesia, and additional iodine contrast agents if possible. Gadolinium is contraindicated if the GFR is below 30. (3) Hypertension Code(s): I10 - Essential (primary) hypertension Status: Chronic Plan: Continue current hypertensive regimen with monitoring of renal indices and adjustment of hypertensive regimen as indicated. I believe that the patient does have a component of labile hypertension secondary to anxiety issues also. (4) ST elevation myocardial infarction (STEMI) Code(s): I21.3 - ST elevation (STEMI) myocardial infarction of unspecified site Status: Acute - Plan Management per cardiology.
[2017-11-16] MEDS: amLODIPine 5 MG Tablet PO SCH (20:59)
[2017-11-16] MEDS: Insulin NovoLOG Aspart Correctional Sugar Inj SQ SCH (22:14)
[2017-11-17] MEDS: Nitroglycerin Drip Premix 50 MG/250 ML BOTTLE IV.CONT PRN (03:07)
[2017-11-17] MEDS: Sod Chloride 0.9% Inj 1,000 ML IV.CONT SCH (03:28)
[2017-11-17 04:26] LABS: Baso % (Auto) 0.4 % (0.0-2.0); Eos # (Auto) 0.1 th/mm3 (0.0-0.4); Eos % (Auto) 1.1 % (0.0-4.0); Hematocrit 30.1 % (35.0-46.0); Hemoglobin 10.6 gm/dL (11.6-15.3); Lymph # (Auto) 0.4 th/mm3 (1.0-4.8); Lymph % (Auto) 5.1 % (9.0-44.0); Mean Corpuscular HGB Conc 35.3 % (32.0-36.0); Mean Corpuscular Hemoglobin 30.7 pg (27.0-34.0); Mean Corpuscular Volume 87.1 fL (80.0-100.0); Mean Platelet Volume 6.7 fL (7.0-11.0); Mono # (Auto) 0.5 th/mm3 (0.0-0.9); Mono % (Auto) 5.6 % (0.0-8.0); Neut # (Auto) 7.6 th/mm3 (1.8-7.7); Neut % (Auto) 87.8 % (16.0-70.0); Platelet Count 191 th/mm3 (150-450); Red Blood Count 3.45 mil/mm3 (4.00-5.30); Red Cell Distribution Width 13.2 % (11.6-17.2); White Blood Count 8.6 th/mm3 (4.0-11.0)
[2017-11-17 04:54] LABS: Albumin 3.2 g/dL (3.4-5.0); Carbon Dioxide 20.1 meq/L (21.0-32.0); Potassium 4.8 meq/L (3.5-5.1)
[2017-11-17 04:55] LABS: Phosphorus 4.4 mg/dL (2.5-4.9)
[2017-11-17 04:57] LABS: Chol/HDL Ratio 4.97 Ratio; HDL Cholesterol 38.4 mg/dL (40.0-60.0)
--- NOTE | 2017-11-17 07:07 | MA ---
cc: Jean Henson MD DATE: 11/16/2017 PROCEDURES PERFORMED: Left heart catheterization, coronary angiography, intravascular ultrasound, balloon angioplasty and stenting of the proximal right coronary artery, right femoral angiography with Angio-Seal placement. BRIEF HISTORY: Afua Alexander is an 87-year-old woman with known stage IV renal disease who comes in with acute chest pain and ST segment elevation in lead III and aVF on her EKG. DESCRIPTION OF PROCEDURE: The patient was brought to the cardiac catheterization lab as a STEMI alert. Her right groin was prepped and draped in sterile fashion. She received 1 mg of Versed for sedation. Using 1% lidocaine for local anesthesia, a 6.5-Omani sheath was inserted in the right femoral artery. Next, the left ventricular pressure was recorded using a pigtail catheter followed by pullback and an LV gram was not performed due to the elevated creatinine. I obtained a single MONTENEGRIN cranial view of the right coronary artery with a 5-Omani 3DRC. I obtained 2 orthogonal views of the left coronary artery with a 6-Omani left diagnostic catheter. I decided to proceed with intervention on the right coronary artery. A a 6-Omani JR4 guide had pressure damping and I switched to a 5-Omani JR4 guide with no pressure damping. Intravenous nitroglycerin was given for her hypertension. I wired the right coronary artery with a Prowater wire. Intravascular ultrasound was performed showing the vessel was about 3.5 mm with an 85% proximal stenosis. I then directly stented the right coronary artery utilizing a 3.5 x 12 mm Rupert balloon deployed at 12 atmospheres. There was a slight waste in the center of the stent. I postdilated this with a 3.5 x 8 mm noncompliant balloon at 20 atmospheres. Angiography demonstrated a good result, the stent was properly sized and there was no significant residual stenosis. The guiding catheter were removed. I used a couple mL of dye to image the sheath in the right groin and then deployed Angio-Seal with hemostasis. There were no complications. FINDINGS: HEMODYNAMICS: 1. Left ventricular pressure was 224/3 with end-diastolic pressure of 12. Aortic pressure was 191/59 with a mean of 107. There was no gradient during pullback. 2. Coronary angiography: Left main coronary artery appears normal. It bifurcates into the LAD and circumflex vessels. The LAD gives off a few small diagonal branches and is a tortuous vessel, but only has 10% irregularities. Circumflex artery is nondominant and gives off 2 marginal branches. It has about 25% proximal irregularities. The right coronary artery is dominant and has an 85% proximal stenosis. It is a tortuous vessel. 3. Results of stenting: Following stenting of the proximal right coronary artery A 0% residual stenosis has been achieved. CONCLUSIONS: 1. Systolic hypertension. 2. LVEDP is not elevated. 3. Severe single vessel coronary artery disease. 4. Successful drug-eluting stent of the proximal right coronary artery. 5. Limited contrast used, only 50 mL. PLAN: The patient will continue saline hydration. We will consult Dr. Camarena. Continue 81 mg aspirin and Brilinta. Restart her blood pressure medications. Use IV nitroglycerin in the interim for blood pressure control. MD HANG Mckoy/avelino , 02:45 PM , 02:55 PM
[2017-11-17] MEDS: Insulin NovoLOG Aspart Correctional Sugar Inj SQ SCH ×4 (08:22→23:07)
[2017-11-17] MEDS: amLODIPine 5 MG Tablet PO SCH (08:24)
--- NOTE | 2017-11-17 09:28 | P.PNCA ---
Subjective Interval history: No chest pain. No complaints Physical Exam Vital signs: Vital Signs 11/16/17 13:00 11/16/17 13:02 11/16/17 13:15 Temperature 97.9 F 97.9 F Pulse Rate 58 L 58 L 45 L Respiratory Rate 16 16 16 Blood Pressure 175/68 H 175/68 H 177/83 H Pulse Oximetry 99 99 98 11/16/17 15:00 11/16/17 16:00 11/16/17 17:00 Temperature Pulse Rate 54 L 55 L 57 L Respiratory Rate Blood Pressure Pulse Oximetry 11/16/17 18:00 11/16/17 19:00 11/16/17 20:00 Temperature 97.6 F Pulse Rate 57 L 61 62 Respiratory Rate 18 Blood Pressure 123/51 L Pulse Oximetry 99 11/16/17 20:20 11/16/17 21:00 11/16/17 22:00 Temperature Pulse Rate 54 L 64 62 Respiratory Rate Blood Pressure Pulse Oximetry 11/16/17 23:00 11/17/17 00:00 11/17/17 01:00 Temperature 98.0 F Pulse Rate 60 58 L 58 L Respiratory Rate 16 Blood Pressure 133/62 Pulse Oximetry 98 11/17/17 02:00 11/17/17 03:00 11/17/17 04:00 Temperature 98.2 F Pulse Rate 58 L 60 60 Respiratory Rate 16 Blood Pressure 123/45 L Pulse Oximetry 99 11/17/17 05:00 11/17/17 06:00 11/17/17 07:00 Temperature Pulse Rate 61 62 61 Respiratory Rate Blood Pressure Pulse Oximetry 11/17/17 07:50 11/17/17 08:00 Temperature 98 F Pulse Rate 63 60 Respiratory Rate 16 Blood Pressure 131/52 L Pulse Oximetry 100 100 Intake & Output 11/16/17 11/17/17 11/17/17 18:59 06:59 18:59 Intake Total 480 / 480 289 / 289 Output Total 300 / 300 Balance 180 / 180 289 / 289 Weight 55 kg 53.5 kg Intake: IV 240 / 240 289 / 289 Nitroglycerin Drip Premix 50 mg 240 / 240 289 / 289 In 250 ml @ 5 MCG/MIN 1.5 mls/ hr IV.CONT TITRATE PRN Rx#: [id number] Oral 240 / 240 Output: Urine 300 / 300 Other: # Voids 1 Date of Last Bowel Movement 11/14/17 11/14/17 Narrative: Alert Chest CTA CV S1S2 RRR with 2/6 JORDYN Abd soft Right groin without hematoma, pulses OK Creatinine went down! Assessment and Plan - Assessment (1) ST elevation myocardial infarction (STEMI) of inferior wall Code(s): I21.19 - ST elevation (STEMI) myocardial infarction involving other coronary artery of inferior wall Status: Acute Plan: Cont beta alison, statin (2) Stented coronary artery Code(s): Z95.5 - Presence of coronary angioplasty implant and graft Status: Acute Plan: Cont ASA 81ng + Brilinta (3) Chronic kidney disease, stage IV (severe) Code(s): N18.4 - Chronic kidney disease, stage 4 (severe) Status: Chronic Plan: Recheck creat tomorrow - OK to DC if stable (4) Hypertension Code(s): I10 - Essential (primary) hypertension Status: Chronic Plan: DC NTG. Appreciate renal's help Progress Note: Quality - AMI Clinical Trial Participant: No Contraindication for No Fibrinolytic Therapy: Drug treatment not indicated ( transfer for PCI)
--- NOTE | 2017-11-17 11:00 | ECG ---
Date Performed: 11/16/2017 Time Performed: 12:55:01 PTAGE: 87 years EKG: Normal Sinus rhythm Right [place] Deviation Right Bundle Branch Block Possible Inferior Myocardial Infarction PREVIOUS TRACING : 09/19/2011 17.31 Compared to previous tracing, Right Bub[place]le Branch abelardo wilkins DOCTOR: Jean Henson Interpretating Date/Time 11/17/2017 11:00:15
--- NOTE | 2017-11-17 11:49 | P.PN ---
Subjective Interval history: Follow-up ST elevation CT November 17, 2017-patient seen and examined, denies any chest pain or shortness of breath. BP still elevated. Physical Exam Vital signs: Vital Signs 11/16/17 13:00 11/16/17 13:02 11/16/17 13:15 Temperature 97.9 F 97.9 F Pulse Rate 58 L 58 L 45 L Respiratory Rate 16 16 16 Blood Pressure 175/68 H 175/68 H 177/83 H Pulse Oximetry 99 99 98 11/16/17 15:00 11/16/17 16:00 11/16/17 17:00 Temperature Pulse Rate 54 L 55 L 57 L Respiratory Rate Blood Pressure Pulse Oximetry 11/16/17 18:00 11/16/17 19:00 11/16/17 20:00 Temperature 97.6 F Pulse Rate 57 L 61 62 Respiratory Rate 18 Blood Pressure 123/51 L Pulse Oximetry 99 11/16/17 20:20 11/16/17 21:00 11/16/17 22:00 Temperature Pulse Rate 54 L 64 62 Respiratory Rate Blood Pressure Pulse Oximetry 11/16/17 23:00 11/17/17 00:00 11/17/17 01:00 Temperature 98.0 F Pulse Rate 60 58 L 58 L Respiratory Rate 16 Blood Pressure 133/62 Pulse Oximetry 98 11/17/17 02:00 11/17/17 03:00 11/17/17 04:00 Temperature 98.2 F Pulse Rate 58 L 60 60 Respiratory Rate 16 Blood Pressure 123/45 L Pulse Oximetry 99 11/17/17 05:00 11/17/17 06:00 11/17/17 07:00 Temperature Pulse Rate 61 62 61 Respiratory Rate Blood Pressure Pulse Oximetry 11/17/17 07:50 11/17/17 08:00 11/17/17 09:00 Temperature 98 F Pulse Rate 63 60 76 Respiratory Rate 16 Blood Pressure 131/52 L 145/68 H 188/81 H Pulse Oximetry 100 100 11/17/17 09:20 11/17/17 09:30 11/17/17 09:50 Temperature Pulse Rate Respiratory Rate Blood Pressure 213/80 H 158/69 H 196/73 H Pulse Oximetry 11/17/17 10:00 11/17/17 10:15 Temperature Pulse Rate 69 Respiratory Rate Blood Pressure 151/62 H 146/60 H Pulse Oximetry Intake & Output 11/16/17 11/17/17 11/17/17 18:59 06:59 18:59 Intake Total 480 / 480 289 / 289 Output Total 300 / 300 Balance 180 / 180 289 / 289 Weight 55 kg 53.5 kg Intake: IV 240 / 240 289 / 289 Nitroglycerin Drip Premix 50 mg 240 / 240 289 / 289 In 250 ml @ 5 MCG/MIN 1.5 mls/ hr IV.CONT TITRATE PRN Rx#: [id number] Oral 240 / 240 Output: Urine 300 / 300 Other: # Voids 1 Date of Last Bowel Movement 11/14/17 11/14/17 Narrative: GENERAL: NAD SKIN: Warm and dry. HEAD: Normocephalic. EYES: No scleral icterus. No injection or drainage. NECK: Supple, trachea midline. No JVD or lymphadenopathy. CARDIOVASCULAR: Regular rate and rhythm with II/ JORDYN RESPIRATORY: Breath sounds equal bilaterally. No accessory muscle use. GASTROINTESTINAL: Abdomen soft, non-tender, nondistended. MUSCULOSKELETAL: No cyanosis, or edema. BACK: Nontender without obvious deformity. No CVA tenderness. Results - Labs CBC & Chem 7: 11/17/17 03:50 11/17/17 03:50 Laboratory Results - last 24 hr 11/16/17 11/16/17 11/16/17 13:05 13:05 15:43 CBC w Diff Auto diff final WBC 9.7 RBC 3.80 L Hgb 11.5 L Hct 33.0 L MCV 87.0 MCH 30.4 MCHC 34.9 RDW 12.7 Plt Count 233 MPV 6.8 L Neut % (Auto) 80.0 H Lymph % (Auto) 10.7 Frio % (Auto) 6.7 Eos % (Auto) 2.4 Baso % (Auto) 0.2 Neut # (Auto) 7.8 H Lymph # (Auto) 1.0 Frio # (Auto) 0.7 Eos # (Auto) 0.2 Baso # (Auto) 0.0 WBC Differential . Differential Comment . Sodium 133 L Potassium 4.9 Chloride 99 Carbon Dioxide 23.7 Anion Gap 10 BUN 31 H Creatinine 2.40 H Estimated GFR 19 L POC Glucose 116 H Random Glucose 156 H Calcium 9.3 Phosphorus Magnesium 2.2 Total Bilirubin 0.4 AST 15 ALT 19 Alkaline Phosphatase 69 Total Creatine Kinase 42 Troponin I Less than 0.02 L Total Protein 6.9 Albumin 3.5 Triglycerides Cholesterol LDL Cholesterol, Calc HDL Cholesterol Cholesterol/HDL Ratio 11/16/17 11/16/17 11/17/17 18:53 21:05 03:50 CBC w Diff WBC 8.6 RBC 3.45 L Hgb 10.6 L Hct 30.1 L MCV 87.1 MCH 30.7 MCHC 35.3 RDW 13.2 Plt Count 191 MPV 6.7 L Neut % (Auto) 87.8 H Lymph % (Auto) 5.1 L Frio % (Auto) 5.6 Eos % (Auto) 1.1 Baso % (Auto) 0.4 Neut # (Auto) 7.6 Lymph # (Auto) 0.4 L Frio # (Auto) 0.5 Eos # (Auto) 0.1 Baso # (Auto) 0.0 WBC Differential . Differential Comment Auto diff final Sodium Potassium Chloride Carbon Dioxide Anion Gap BUN Creatinine Estimated GFR POC Glucose 248 H 225 H Random Glucose Calcium Phosphorus Magnesium Total Bilirubin AST ALT Alkaline Phosphatase Total Creatine Kinase Troponin I Total Protein Albumin Triglycerides Cholesterol LDL Cholesterol, Calc HDL Cholesterol Cholesterol/HDL Ratio 11/17/17 11/17/17 03:50 07:59 CBC w Diff WBC RBC Hgb Hct MCV MCH MCHC RDW Plt Count MPV Neut % (Auto) Lymph % (Auto) Frio % (Auto) Eos % (Auto) Baso % (Auto) Neut # (Auto) Lymph # (Auto) Frio # (Auto) Eos # (Auto) Baso # (Auto) WBC Differential Differential Comment Sodium 133 L Potassium 4.8 Chloride 101 Carbon Dioxide 20.1 L Anion Gap 12 BUN 30 H Creatinine 1.71 H Estimated GFR 28 L POC Glucose 164 H Random Glucose 168 H Calcium 9.0 Phosphorus 4.4 Magnesium Total Bilirubin AST ALT Alkaline Phosphatase Total Creatine Kinase 33 Troponin I Total Protein Albumin 3.2 L Triglycerides 204 H Cholesterol 191 LDL Cholesterol, Calc 112 H HDL Cholesterol 38.4 L Cholesterol/HDL Ratio 4.97 - Imaging Impressions Chest X-Ray 11/16/17 13:02 CONCLUSION: Stable chest. No acute disease Assessment and Plan - Plan 87-year-old female with ST elevation CT Status post PCI with stent placement Currently on Brilinta, ASA, Lipitor, BB Management per Cardiology 2D echo, lipid profile pending Continue with Telemetry monitoring Hypertensive urgency Continue with BB, Hydralazine, Clonidine 2D echo pending Diabetes type II Hold Oral hyperglycemic agents Continue ISS with FSBG monitoring CKD stage IV Monitor Bun/Cr; Avoid all nephrotoxic drugs Appreciate input from nephrology Other chronic medical conditions Continue with outpatient medications Progress Note: Quality - AMI Clinical Trial Participant: No Contraindication for No Fibrinolytic Therapy: Drug treatment not indicated ( transfer for PCI)
--- NOTE | 2017-11-17 12:05 | ECHRPT ---
Indication: Chest pain, unspecified CONCLUSIONS The left ventricular systolic function is low normal with an estimated ejection fraction in the rang e of 50- 55%. Wall thickness is measured at the upper limits of normal. Normal left ventricular size. Moderate mitral valve regurgitation. There is moderate tricuspid regurgitation. The estimated pulmonary arterial pressure is 37.2 mmHg. Moderate aortic valve stenosis. Aortic valve area is 0.61 cm. BP: / HR: 73 Rhythm: Sinus MEASUREMENTS (Male / Female) Normal Values Technical Quality:Good 2D ECHO LV Diastolic Diameter PLAX 3.8 cm 4.2 - 5.9 / 3.9 - 5.3 cm LV Systolic Diameter PLAX 2.9 cm IVS Diastolic Thickness 1.0 cm 0.6 - 1.0 / 0.6 - 0.9 cm LVPW Diastolic Thickness 1.0 cm 0.6 - 1.0 / 0.6 - 0.9 cm LV Relative Wall Thickness 0.5 LVOT Diameter 1.6 cm M-MODE Aortic Root Diameter MM 3.5 cm LA Systolic Diameter MM 3.8 cm LA Ao Ratio MM 1.1 AV Cusp Separation MM 1.9 cm DOPPLER AV Peak Velocity 340.0 cm/s AV Peak Gradient 46.2 mmHg AV Mean Gradient 28.0 mmHg AV Velocity Time Integral 78.5 cm LVOT Peak Velocity 104.0 cm/s LVOT Peak Gradient 4.3 mmHg AV Area Cont Eq pk 0.6 cm MR Peak Velocity 432.0 cm/s MR Peak Gradient 74.6 mmHg Mitral E Point Velocity 143.0 cm/s Mitral A Point Velocity 173.0 cm/s Mitral E to A Ratio 0.8 LV E' Lateral Velocity 5.7 cm/s Mitral E to LV E' Lateral Ratio 25.3 LV E' Septal Velocity 4.9 cm/s Mitral E to LV E' Septal Ratio 29.4 TR Peak Velocity 261.0 cm/s TR Peak Gradient 27.2 mmHg Right Atrial Pressure 10.0 mmHg Pulmonary Artery Systolic Pressu 37.2 mmHg Right Ventricular Systolic Press 37.2 mmHg PV Peak Velocity 157.0 cm/s PV Peak Gradient 9.9 mmHg FINDINGS LEFT VENTRICLE The left ventricular systolic function is low normal with an estimated ejection fraction in the rang e of 50- 55%. Wall thickness is measured at the upper limits of normal. Normal left ventricular size. RIGHT VENTRICLE Normal right ventricular size and systolic function. LEFT ATRIUM The left atrial size is normal. RIGHT ATRIUM The right atrial size is normal. ATRIAL SEPTUM Normal atrial septal thickness without atrial level shunting by limited color doppler interrogation. AORTA The aortic root and proximal ascending aorta are normal in size on limited imaging. MITRAL VALVE Moderate mitral valve regurgitation. AORTIC VALVE Moderate aortic valve stenosis. Aortic valve area is 0.61 cm. TRICUSPID VALVE There is moderate tricuspid regurgitation. The estimated pulmonary arterial pressure is 37.2 mmHg. PULMONARY VALVE No pulmonary valve regurgitation or stenosis. VESSELS The inferior vena cava is normal in size. PERICARDIUM No pericardial effusion. Sid Wallace MD, FACC (Electronically Signed) Final Date:17 November 2017 12:04
[2017-11-17] MEDS ORDERED: hydrALAZINE 25 MG Tablet PO PRN (12:54)
[2017-11-17] MEDS: LORazepam 0.5 MG Tablet PO SCH ×2 (13:56→18:06)
--- NOTE | 2017-11-17 16:49 | ECG ---
Date Performed: 11/17/2017 Time Performed: 07:52:48 PTAGE: 87 years EKG: Sinus arrhythmia Right bundle branch block Since previous tracing, no significant change no roddy Abnormal ECG PREVIOUS TRACING : 11/16/2017 12.55 DOCTOR: Pollo Navarrete Interpretating Date/Time 11/17/2017 16:48:51
--- NOTE | 2017-11-17 17:23 | P.PNNP ---
Subjective Interval history: Patient lying in bed. Appears to be somewhat anxious. Not in respiratory distress. Responding to questions appropriately. Physical Exam Vital signs: Vital Signs 11/16/17 18:00 11/16/17 19:00 11/16/17 20:00 Temperature 97.6 F Pulse Rate 57 L 61 62 Respiratory Rate 18 Blood Pressure 123/51 L Pulse Oximetry 99 11/16/17 20:20 11/16/17 21:00 11/16/17 22:00 Temperature Pulse Rate 54 L 64 62 Respiratory Rate Blood Pressure Pulse Oximetry 11/16/17 23:00 11/17/17 00:00 11/17/17 01:00 Temperature 98.0 F Pulse Rate 60 58 L 58 L Respiratory Rate 16 Blood Pressure 133/62 Pulse Oximetry 98 11/17/17 02:00 11/17/17 03:00 11/17/17 04:00 Temperature 98.2 F Pulse Rate 58 L 60 60 Respiratory Rate 16 Blood Pressure 123/45 L Pulse Oximetry 99 11/17/17 05:00 11/17/17 06:00 11/17/17 07:00 Temperature Pulse Rate 61 62 61 Respiratory Rate Blood Pressure Pulse Oximetry 11/17/17 07:50 11/17/17 08:00 11/17/17 09:00 Temperature 98 F Pulse Rate 63 60 76 Respiratory Rate 16 Blood Pressure 131/52 L 145/68 H 188/81 H Pulse Oximetry 100 100 11/17/17 09:20 11/17/17 09:30 11/17/17 09:50 Temperature Pulse Rate Respiratory Rate Blood Pressure 213/80 H 158/69 H 196/73 H Pulse Oximetry 11/17/17 10:00 11/17/17 10:15 11/17/17 11:00 Temperature Pulse Rate 69 67 Respiratory Rate 17 Blood Pressure 151/62 H 146/60 H 148/63 H Pulse Oximetry 98 11/17/17 11:15 11/17/17 11:30 11/17/17 11:45 Temperature Pulse Rate Respiratory Rate Blood Pressure 162/58 H 146/63 H 164/71 H Pulse Oximetry 11/17/17 12:00 11/17/17 12:30 11/17/17 13:00 Temperature Pulse Rate 68 67 Respiratory Rate Blood Pressure 169/67 H 167/75 H Pulse Oximetry 11/17/17 13:26 11/17/17 13:45 11/17/17 15:00 Temperature Pulse Rate 59 L Respiratory Rate 16 Blood Pressure 170/67 H 166/63 H 139/59 L Pulse Oximetry 98 11/17/17 16:00 Temperature Pulse Rate 58 L Respiratory Rate Blood Pressure Pulse Oximetry Intake & Output 11/16/17 11/17/17 11/17/17 18:59 06:59 18:59 Intake Total 480 / 480 289 / 289 Output Total 300 / 300 Balance 180 / 180 289 / 289 Weight 55 kg 53.5 kg Intake: IV 240 / 240 289 / 289 Nitroglycerin Drip Premix 50 mg 240 / 240 289 / 289 In 250 ml @ 5 MCG/MIN 1.5 mls/ hr IV.CONT TITRATE PRN Rx#: [id number] Oral 240 / 240 Output: Urine 300 / 300 Other: # Voids 1 Date of Last Bowel Movement 11/14/17 11/14/17 Narrative: GENERAL: Not in respiratory distress. SKIN: Warm and dry. HEAD: Normocephalic. EYES: No scleral icterus. No injection or drainage. NECK: Supple, trachea midline. No JVD o. CARDIOVASCULAR: Regular rate and rhythm with II/ JORDYN RESPIRATORY: Breath sounds equal bilaterally. No accessory muscle use. GASTROINTESTINAL: Abdomen soft, non-tender, nondistended. MUSCULOSKELETAL: No cyanosis, or edema. Assessment and Plan - Assessment (1) Acute renal insufficiency Code(s): N28.9 - Disorder of kidney and ureter, unspecified Status: Acute Plan: The patient's presenting creatinine level now back to usual baseline. No evidence of contrast nephrotoxicity. (2) Chronic kidney disease, stage IV (severe) Code(s): N18.4 - Chronic kidney disease, stage 4 (severe) Status: Chronic Plan: Secondary to nephrosclerosis of hypertension and aging with a possible vascular component. Medications should be adjusted for the patient's estimated GFR if clinically indicated. Avoid agents with significant potential for nephrotoxicity possible including NSAIDs for analgesia, and additional iodine contrast agents if possible. Gadolinium is contraindicated if the GFR is below 30. (3) Hypertension Code(s): I10 - Essential (primary) hypertension Status: Chronic Plan: The patient's blood pressure has improved significantly. Will defer use of anxiolytics to hospitalist physician. I believe that the patient does have a component of labile hypertension secondary to anxiety issues as noted as an outpatient. If renal indices remain stable and blood pressure controlled discharge planning okay from renal point of view with follow-up with me in the office in approximately 2 weeks. (4) ST elevation myocardial infarction (STEMI) Code(s): I21.3 - ST elevation (STEMI) myocardial infarction of unspecified site Status: Acute - Plan Management per cardiology. Progress Note: Quality - AMI Clinical Trial Participant: No Contraindication for No Fibrinolytic Therapy: Drug treatment not indicated ( transfer for PCI)
[2017-11-18 08:01] LABS: Calcium 9.3 mg/dL (8.5-10.1); Carbon Dioxide 20.6 meq/L (21.0-32.0); Potassium 4.4 meq/L (3.5-5.1)
[2017-11-18] MEDS: Insulin NovoLOG Aspart Correctional Sugar Inj SQ SCH ×2 (08:16→11:21)
[2017-11-18] MEDS: LORazepam 0.5 MG Tablet PO SCH ×2 (08:16→13:04)
--- NOTE | 2017-11-18 08:40 | P.PNCA ---
Subjective Interval history: No angina. Physical Exam Vital signs: Vital Signs 11/17/17 09:00 11/17/17 09:20 11/17/17 09:30 Pulse Rate 76 Respiratory Rate Blood Pressure 188/81 H 213/80 H 158/69 H Pulse Oximetry 11/17/17 09:50 11/17/17 10:00 11/17/17 10:15 Pulse Rate 69 Respiratory Rate Blood Pressure 196/73 H 151/62 H 146/60 H Pulse Oximetry 11/17/17 11:00 11/17/17 11:15 11/17/17 11:30 Pulse Rate 67 Respiratory Rate 17 Blood Pressure 148/63 H 162/58 H 146/63 H Pulse Oximetry 98 11/17/17 11:45 11/17/17 12:00 11/17/17 12:30 Pulse Rate 68 Respiratory Rate Blood Pressure 164/71 H 169/67 H 167/75 H Pulse Oximetry 11/17/17 13:00 11/17/17 13:26 11/17/17 13:45 Pulse Rate 67 Respiratory Rate Blood Pressure 170/67 H 166/63 H Pulse Oximetry 11/17/17 15:00 11/17/17 16:00 11/17/17 17:00 Pulse Rate 59 L 58 L 67 Respiratory Rate 16 Blood Pressure 139/59 L Pulse Oximetry 98 11/17/17 18:00 11/17/17 19:00 11/17/17 20:00 Pulse Rate 67 59 L 59 L Respiratory Rate 14 Blood Pressure 107/48 L Pulse Oximetry 98 11/17/17 21:00 11/17/17 22:00 11/17/17 23:00 Pulse Rate 60 58 L 63 Respiratory Rate 16 Blood Pressure 126/52 L Pulse Oximetry 98 11/18/17 00:00 11/18/17 01:00 11/18/17 02:00 Pulse Rate 66 62 66 Respiratory Rate Blood Pressure Pulse Oximetry 11/18/17 03:00 11/18/17 04:00 11/18/17 05:00 Pulse Rate 66 66 66 Respiratory Rate 20 Blood Pressure 131/60 Pulse Oximetry 99 11/18/17 06:00 11/18/17 07:00 Pulse Rate 76 65 Respiratory Rate Blood Pressure Pulse Oximetry Intake & Output 11/17/17 11/18/17 11/18/17 18:59 06:59 18:59 Intake Total 529 / 529 240 / 240 Output Total 200 / 200 Balance 529 / 529 40 / 40 Weight 53.4 kg Intake: IV 289 / 289 Nitroglycerin Drip Premix 50 mg 289 / 289 In 250 ml @ 5 MCG/MIN 1.5 mls/ hr IV.CONT TITRATE PRN Rx#: [id number] Oral 240 / 240 240 / 240 Output: Urine 200 / 200 Other: # Voids 2 Date of Last Bowel Movement 11/14/17 11/14/17 Narrative: GENERAL: Not in respiratory distress. SKIN: Warm and dry. HEAD: Normocephalic. EYES: No scleral icterus. No injection or drainage. NECK: No JVD CARDIOVASCULAR: nl S1S2 RRR with II/ JORDYN RESPIRATORY: Breath sounds equal bilaterally. No accessory muscle use. GASTROINTESTINAL: Abdomen soft, non-tender, nondistended. MUSCULOSKELETAL: No cyanosis, or edema. Assessment and Plan - Assessment (1) ST elevation myocardial infarction (STEMI) of inferior wall Code(s): I21.19 - ST elevation (STEMI) myocardial infarction involving other coronary artery of inferior wall Status: Acute Plan: Cont beta alison, statin (2) Stented coronary artery Code(s): Z95.5 - Presence of coronary angioplasty implant and graft Status: Acute Plan: Cont ASA 81ng + Brilinta (3) Chronic kidney disease, stage IV (severe) Code(s): N18.4 - Chronic kidney disease, stage 4 (severe) Status: Chronic Plan: Stable (4) Hypertension Code(s): I10 - Essential (primary) hypertension Status: Chronic Plan: DC NTG. Appreciate renal's help - Plan OK to DC home. OV 2 weeks Progress Note: Quality - AMI Clinical Trial Participant: No Contraindication for No Fibrinolytic Therapy: Drug treatment not indicated ( transfer for PCI)
--- NOTE | 2017-11-18 10:32 | P.PN ---
Subjective Interval history: Follow-up ST elevation [place] November 17, 2017-patient seen and examined, denies any chest pain or shortness of breath. BP still elevated. November 18, 2017-patient seen and examined,, no chest pain, dizziness. Quite anxious. Physical Exam Vital signs: Vital Signs 11/17/17 11:00 11/17/17 11:15 11/17/17 11:30 Temperature Pulse Rate 67 Respiratory Rate 17 Blood Pressure 148/63 H 162/58 H 146/63 H Pulse Oximetry 98 11/17/17 11:45 11/17/17 12:00 11/17/17 12:30 Temperature Pulse Rate 68 Respiratory Rate Blood Pressure 164/71 H 169/67 H 167/75 H Pulse Oximetry 11/17/17 13:00 11/17/17 13:26 11/17/17 13:45 Temperature Pulse Rate 67 Respiratory Rate Blood Pressure 170/67 H 166/63 H Pulse Oximetry 11/17/17 15:00 11/17/17 16:00 11/17/17 17:00 Temperature Pulse Rate 59 L 58 L 67 Respiratory Rate 16 Blood Pressure 139/59 L Pulse Oximetry 98 11/17/17 18:00 11/17/17 19:00 11/17/17 20:00 Temperature Pulse Rate 67 59 L 59 L Respiratory Rate 14 Blood Pressure 107/48 L Pulse Oximetry 98 11/17/17 21:00 11/17/17 22:00 11/17/17 23:00 Temperature Pulse Rate 60 58 L 63 Respiratory Rate 16 Blood Pressure 126/52 L Pulse Oximetry 98 11/18/17 00:00 11/18/17 01:00 11/18/17 02:00 Temperature Pulse Rate 66 62 66 Respiratory Rate Blood Pressure Pulse Oximetry 11/18/17 03:00 11/18/17 04:00 11/18/17 05:00 Temperature Pulse Rate 66 66 66 Respiratory Rate 20 Blood Pressure 131/60 Pulse Oximetry 99 11/18/17 06:00 11/18/17 07:00 11/18/17 08:00 Temperature 98.2 F Pulse Rate 76 65 76 Respiratory Rate 16 Blood Pressure 163/60 H Pulse Oximetry 97 11/18/17 09:00 11/18/17 09:53 Temperature Pulse Rate 71 71 Respiratory Rate Blood Pressure Pulse Oximetry Intake & Output 11/17/17 11/18/17 11/18/17 18:59 06:59 18:59 Intake Total 529 / 529 240 / 240 Output Total 200 / 200 Balance 529 / 529 40 / 40 Weight 53.4 kg Intake: IV 289 / 289 Nitroglycerin Drip Premix 50 mg 289 / 289 In 250 ml @ 5 MCG/MIN 1.5 mls/ hr IV.CONT TITRATE PRN Rx#: [id number] Oral 240 / 240 240 / 240 Output: Urine 200 / 200 Other: # Voids 2 Date of Last Bowel Movement 11/14/17 11/14/17 11/14/17 Narrative: GENERAL: NAD SKIN: Warm and dry. HEAD: Normocephalic. EYES: No scleral icterus. No injection or drainage. NECK: No JVD CARDIOVASCULAR: nl S1S2 RRR with II/ JORDYN RESPIRATORY: Breath sounds equal bilaterally. No accessory muscle use. GASTROINTESTINAL: Abdomen soft, non-tender, nondistended. MUSCULOSKELETAL: No cyanosis, or edema. Results - Labs CBC & Chem 7: 11/17/17 03:50 11/18/17 06:45 Laboratory Results - last 24 hr 11/17/17 11/17/17 11/17/17 12:11 17:03 23:06 Sodium Potassium Chloride Carbon Dioxide Anion Gap BUN Creatinine Estimated GFR POC Glucose 244 H 208 H 126 H Random Glucose Calcium 11/18/17 11/18/17 06:45 08:11 Sodium 134 L Potassium 4.4 Chloride 102 Carbon Dioxide 20.6 L Anion Gap 11 BUN 34 H Creatinine 2.09 H Estimated GFR 23 L POC Glucose 183 H Random Glucose 175 H Calcium 9.3 - Procedures [facility] with PCI Assessment and Plan - Plan 87-year-old female with ST elevation [place] Status post PCI with stent placement Currently on Brilinta, ASA, Lipitor, BB Management per Cardiology Continue with Telemetry monitoring Hypertensive urgency Continue with BB, Hydralazine, Clonidine 2D echo pending Diabetes type II Resume Oral hyperglycemic agents Continue ISS with FSBG monitoring CKD stage IV Monitor Bun/Cr; Avoid all nephrotoxic drugs Appreciate input from nephrology Other chronic medical conditions Continue with outpatient medications Progress Note: Quality - AMI Clinical Trial Participant: No Contraindication for No Fibrinolytic Therapy: Drug treatment not indicated ( transfer for PCI)
--- NOTE | 2017-11-18 10:32 | P.DCO ---
- Home Health Nursing Order: Signs/symptoms of disease process - Certification I have seen patient Afua Alexander on 11/18/17. My clinical findings support the need for the requested home health care services because: Patient has SOB I certify that my clinical findings support that this patient is homebound because: Poor cardiac reserve
--- NOTE | 2017-11-18 10:36 | P.DS ---
Date of admission: 11/16/17 14:28 Primary care physician: UNKNOWN Anticipated date of discharge: 11/18/17 Brief History from admission: 87-year-old female for past medical history of diabetes type 2, hypertension, chronic kidney disease stage IV presented to the ED today for evaluation of ongoing substernal chest pain times several weeks duration however worse today on presentations shortness of breath and elevated BP. A STEMI was called and patient was taken to cardiac catheterization lab for PCI with stent placement. Patient was seen in her room, she is currently on nitroglycerin for elevated BP. During my exam, she denies any chest pain or shortness of breath. DS: Diagnosis - Discharge Diagnosis (1) ST elevation myocardial infarction (STEMI) Status: Acute DS: Medications - Discharge Medications Prescriptions: atorvastatin [Lipitor] 40 mg PO DAILY #30 tab nifedipine 60 mg PO BID #60 tab ticagrelor [Brilinta] 90 mg PO BID #60 tab DS: Summary Hospital Course: While in hospital, patient was treated for: ST elevation [place] Status post PCI with stent placement Currently on Brilinta, ASA, Lipitor, BB Management per Cardiology Continue with Telemetry monitoring Hypertensive urgency Continue with BB, Hydralazine, Clonidine 2D echo pending Diabetes type II Resume Oral hyperglycemic agents Continue ISS with FSBG monitoring CKD stage IV Monitor Bun/Cr; Avoid all nephrotoxic drugs Appreciate input from nephrology Other chronic medical conditions Continue with outpatient medication - Time Spent with Patient Total time spent providing and/or coordinating discharge services: Greater than 30 minutes - Quality: AMI Clinical Trial Participant: No Contraindication-No Fibrinolytic Therapy: Drug treatment not indicated ( transfer for PCI) Exam Vital signs: Vital Signs 11/17/17 11:00 11/17/17 11:15 11/17/17 11:30 Temperature Pulse Rate 67 Respiratory Rate 17 Blood Pressure 148/63 H 162/58 H 146/63 H Pulse Oximetry 98 11/17/17 11:45 11/17/17 12:00 11/17/17 12:30 Temperature Pulse Rate 68 Respiratory Rate Blood Pressure 164/71 H 169/67 H 167/75 H Pulse Oximetry 11/17/17 13:00 11/17/17 13:26 11/17/17 13:45 Temperature Pulse Rate 67 Respiratory Rate Blood Pressure 170/67 H 166/63 H Pulse Oximetry 11/17/17 15:00 11/17/17 16:00 11/17/17 17:00 Temperature Pulse Rate 59 L 58 L 67 Respiratory Rate 16 Blood Pressure 139/59 L Pulse Oximetry 98 11/17/17 18:00 11/17/17 19:00 11/17/17 20:00 Temperature Pulse Rate 67 59 L 59 L Respiratory Rate 14 Blood Pressure 107/48 L Pulse Oximetry 98 11/17/17 21:00 11/17/17 22:00 11/17/17 23:00 Temperature Pulse Rate 60 58 L 63 Respiratory Rate 16 Blood Pressure 126/52 L Pulse Oximetry 98 11/18/17 00:00 11/18/17 01:00 11/18/17 02:00 Temperature Pulse Rate 66 62 66 Respiratory Rate Blood Pressure Pulse Oximetry 11/18/17 03:00 11/18/17 04:00 11/18/17 05:00 Temperature Pulse Rate 66 66 66 Respiratory Rate 20 Blood Pressure 131/60 Pulse Oximetry 99 11/18/17 06:00 11/18/17 07:00 11/18/17 08:00 Temperature 98.2 F Pulse Rate 76 65 76 Respiratory Rate 16 Blood Pressure 163/60 H Pulse Oximetry 97 11/18/17 09:00 11/18/17 09:53 Temperature Pulse Rate 71 71 Respiratory Rate Blood Pressure Pulse Oximetry Intake & Output 11/17/17 11/18/17 11/18/17 18:59 06:59 18:59 Intake Total 529 / 529 240 / 240 Output Total 200 / 200 Balance 529 / 529 40 / 40 Weight 53.4 kg Intake: IV 289 / 289 Nitroglycerin Drip Premix 50 mg 289 / 289 In 250 ml @ 5 MCG/MIN 1.5 mls/ hr IV.CONT TITRATE PRN Rx#: [id number] Oral 240 / 240 240 / 240 Output: Urine 200 / 200 Other: # Voids 2 Date of Last Bowel Movement 11/14/17 11/14/17 11/14/17 Narrative: GENERAL: NAD SKIN: Warm and dry. HEAD: Normocephalic. EYES: No scleral icterus. No injection or drainage. NECK: Supple, trachea midline. No JVD or lymphadenopathy. CARDIOVASCULAR: Regular rate and rhythm with II/ JORDYN RESPIRATORY: Breath sounds equal bilaterally. No accessory muscle use. GASTROINTESTINAL: Abdomen soft, non-tender, nondistended. MUSCULOSKELETAL: No cyanosis, or edema. BACK: Nontender without obvious deformity. No CVA tenderness. Results Procedures completed during hospitalization: [facility] with PCI Labs on day of discharge: Labs from last 24 hours 11/18/17 11/18/17 11/17/17 08:11 06:45 23:06 Sodium 134 L Potassium 4.4 Chloride 102 Carbon Dioxide 20.6 L Anion Gap 11 BUN 34 H Creatinine 2.09 H Estimated GFR 23 L POC Glucose 183 H 126 H Random Glucose 175 H Calcium 9.3 11/17/17 11/17/17 17:03 12:11 Sodium Potassium Chloride Carbon Dioxide Anion Gap BUN Creatinine Estimated GFR POC Glucose 208 H 244 H Random Glucose Calcium - Impressions ITS Impressions Chest X-Ray 11/16/17 13:02 CONCLUSION: Stable chest. No acute disease Discharge Plan - Discharge Disposition Patient Disposition: /Home Health Service - Discharge Condition Condition: Stable - Discharge Order Discharge Orders: Discharge Order (Routine); Ordered 11/18/17 Ordered By: Arthur Jaime Cardiology Clear for Discharge (Routine); Ordered 11/18/17 Ordered By: Jean Henson - Physicians Team Primary Care Provider: UNKNOWN, Attending Provider: Arthur Jaime Other Providers: Jean Henson MD ; Chucky Contreras MD
== END 2017-11-18 13:40 | disposition home health service (06) ==
LOC: PHED 12:52 → PHEDA 13:20 → HCIS 15:02
PROVIDERS: ADMIT Hospitalist; ATTEND Hospitalist